=== PATIENT | male | born 1985 | race American Indian/Alaskan Native ===

== ENCOUNTER → 2024-11-29 | Outpatient (CLI) | payer MEDICAID, SELFPAY ==
--- NOTE | 2024-11-29 14:54 | XR_ITS ---
Examination: Renal arterial Doppler sonographic evaluation kidneys Examination time: November 29, 2024, 1602 hours INDICATIONS: Chronic kidney disease, nephrotic syndrome, frequent urination proteinuria months TECHNIQUE AND FINDINGS: Right kidney 9.6 cm No elevation of peak systolic velocities Normal resistive indices. Normal renal aorta ratio Left kidney 10.1 cm No elevation peak systolic velocities Normal resistive indices Normal renal artery ratio IMPRESSION: No Doppler sonographic findings of renal artery stenosis
--- NOTE | 2024-11-29 14:54 | XR_ITS ---
Examination: Retroperitoneal ultrasound, complete Technique: Multiple high resolution grayscale images of the retroperitoneum obtained, including kidneys and bladder. Exam date and time:November 29, 2024 6002 hours INDICATIONS: Chronic kidney disease with nephrotic syndrome, increased urination 2 weeks FINDINGS: Right kidney 9.6 cm renal cord is 1.6 cm Left kidney 10.1 cm renal cortex 1.7 cm Poor differentiation between renal cortex and medulla Moderate renal parenchymal scar formation No bladder mass or bladder calculi. Bladder prevoid volume 330 cc Prostate volume 26.4 cc no prostate nodules IMPRESSION: Poor differentiation between renal cortex and medulla Moderate bilateral renal parenchymal scar formation
== END | disposition home or self-care (01) ==
PROVIDERS: PCP Physician Assistant; Referring Provider Internal Medicine Nephrology; Visit Provider Internal Medicine Nephrology
DX: N28.89 Other specified disorders of kidney and ureter (principal)
CPT/HCPCS: 76770; 93975

== ENCOUNTER 2025-07-12 15:05 | Inpatient (IN) | payer MEDICAID, SELFPAY ==
[2025-07-12 15:06] VITALS: BMI 45.3
--- NOTE | 2025-07-12 15:44 | XR_ITS ---
EXAMINATION: PA chest single view TECHNIQUE: 1. Upright PA chest single view Date and time: July 12, 2025, 1554 hours INDICATIONS: Cough and shortness of breath beginning 2 days ago. FINDINGS: Mild heart failure Moderate enlargement cardiac contour, prominent vascular congestion with perihilar edema Intact osseous structures IMPRESSION: Moderate enlargement cardiac contour with mild heart failure
--- NOTE | 2025-07-12 15:44 | EKG_ITS ---
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
[2025-07-12 15:46] VITALS: BP 172/102; PULSE 88; RESP 19; TEMP 36.7; O2SAT 94; BMI 49.4
--- NOTE | 2025-07-12 15:46 | PD.EDADULT ---
ED General RME/HPI General Chief complaint: General Adult/Misc Complain Stated complaint: TOLD TO COME TO THE E.D. Time Seen by Provider: 07/12/25 15:21 Arrival date/time: 07/12/25 15:05 40-year-old male patient with significant history of hypertension, was sent to us to the emergency room by PCP after patient had routine lab works that was done yesterday. Patient does not know why. According to the patient has been having worsening bilateral lower extremity swelling involving the lower abdomen, shortness of breath dyspnea on exertion and orthopnea. Patient also complained of nonproductive cough. Denies any dizziness denies any chest pain denies any abdominal pain. No medication was taken prior to ER visit. Was seen by injection machine operator more than 6 months ago. Lost to follow-up. Related Data Previous Rx's ?Medication ?Instructions ?Recorded cephalexin 500 mg capsule 500 mg PO TID #14 caps 04/25/23 metoprolol tartrate 25 mg tablet 25 mg PO BID #30 tabs 04/25/23 Allergies Allergy/AdvReac Type Severity Reaction Status Date / Time No Known Allergies Allergy Verified 07/12/25 15:09 Review of Systems Review of Systems Narrative Review of Systems: Review of system reviewed and within normal limits except mentioned in HPI ED Exam Narrative Physical exam: VITAL SIGNS: Reviewed. GENERAL APPEARANCE: Alert and interactive, follows commands, no acute distress, HEAD AND FACE: Non-traumatic. ENT: PERRL, pink conjunctivitis, eyelid no trauma, Mucous membrane moist. NECK: Supple, nontender, no nuchal rigidity. Prominent jugular veins noted CHEST: No tenderness, no crepitus, no paradoxical movement, no retractions. LUNGS: Clear, well ventilated, symmetric, no rales, no wheezing, no ronchi, no stridor, good breath sounds bilaterally. HEART: Regular rate, regular rhythm, no murmur, no gallops. ABDOMEN: Soft, positive bowel sounds, nondistended, no guarding, nontender, no rebound, no masses, RECTAL: Deferred. GENITAL: Deferred. NEUROLOGICAL: Gross motor function intact sensory function intact, Appropriate for age. MUSCULOSKELETAL: low back nontender, full range of motion. EXTREMITIES: Bilateral lower extremity +2 edema, nontender, full range of motion. SKIN: Color pink, dry, no rash, no lacerations, no abrasions, no contusions. LYMPHATICS: Deferred. Course Quality Measures none Orders Category Date Time Status COVID-19 Screening Questionnaire NOW Care 07/12/25 17:33 Active Decision to Admit X1 Care 07/12/25 17:32 Active EKG (ED ONLY) *Do not use* NOW Care 07/12/25 15:45 Completed Consult to Nephrology Stat Cons 07/12/25 17:20 Ordered EKG (ED Only) Stat Exams 07/12/25 15:44 Draft US renal BI Stat Exams 07/12/25 17:11 Ordered XR chest 1V Stat Exams 07/12/25 15:44 Taken B-Type Natriuretic Peptide Stat Lab 07/12/25 16:07 Completed CBC Stat Lab 07/12/25 16:07 Completed Comprehensive Metabolic Panel Stat Lab 07/12/25 16:07 Completed Drug Screen,Urine Stat Lab 07/12/25 15:45 Ordered Partial Thromboplastin Time Stat Lab 07/12/25 16:07 Completed Prothrombin Time with INR Stat Lab 07/12/25 16:07 Completed Troponin I Stat Lab 07/12/25 16:07 Completed Urinalysis, C/S if Indicated Stat Lab 07/12/25 15:44 Ordered Furosemide Inj [Lasix Inj] Med 07/12/25 15:44 Discontinued 40 mg IVP X1 ONE Furosemide Inj [Lasix Inj] Med 07/12/25 17:20 Discontinued 80 mg IVP X1 ONE Vital Signs Vital signs: Vital Signs Temperature 98.1 F 07/12/25 15:46 Pulse Rate 88 07/12/25 15:46 Respiratory Rate 19 07/12/25 15:46 Blood Pressure 172/102 H 07/12/25 15:46 Pulse Oximetry (%) 94 L 07/12/25 15:46 Oxygen Delivery Method Room Air 07/12/25 15:46 Discharge Plan Plan Patient Disposition: Admit Acute Care w/in Hospital Discharge Disposition comment: Stable Prescriptions/Referrals Prescriptions/Med Rec: No Action cephalexin 500 mg capsule 500 mg PO TID Qty: 14 0RF metoprolol tartrate 25 mg tablet 25 mg PO BID Qty: 30 1RF Problem List Clinical Impression: ESRD (end stage renal disease), CHF (congestive heart failure) Patient/Caregiver Discharge Instructions Print Language: Amharic Stand Alone Forms: Arpita Award Info., Patient Portal Info Letter MDM Narrative MDM hospital course (for use when minimal MDM required): 07/12/25 15:05 40-year-old male patient with significant history of hypertension, was sent to us to the emergency room by PCP after patient had routine lab works that was done yesterday. Patient does not know why. According to the patient has been having worsening bilateral lower extremity swelling involving the lower abdomen, shortness of breath dyspnea on exertion and orthopnea. Patient also complained of nonproductive cough. Denies any dizziness denies any chest pain denies any abdominal pain. No medication was taken prior to ER visit. Was seen by injection machine operator more than 6 months ago. Lost to follow-up. EKG showed sinus rhythm, ventricular rate of 89 bpm, GA interval 163 MS, no ST segment elevation or depression noted. CBC showed hemoglobin of 10.3, hematocrit of 33.9 BUN of 56, creatinine 7.0. eGFR of 10 calcium 6.8, corrected calcium 6.8 troponin 0.146, BNP of 746. Patient received 80 mg of Lasix IV. Plan of care discussed with the patient, who agrees to be admitted. Spoke with Dr Nunez, injection machine operator on-call, told me to admit the patient, started patient on Lasix 80 mg IV twice daily. Spoke with hospitalist who admitted the patient. Medication Administration(s) Medication Administration History Discontinued Medications Furosemide (Furosemide Inj 10 Mg/Ml 4ml Vial) 40 mg IVP X1 ONE Stop: 07/12/25 15:45 Furosemide (Furosemide Inj 10 Mg/Ml 4ml Vial) 80 mg IVP X1 ONE Stop: 07/12/25 17:21 Consultations/Discussions re: Management Consult #1: Date/time: 07/12/25 5:46 pm Physician, specialty, service, details: Spoke with Dr Nunez injection machine operator, discussed the case, thank you Dr. Diagnosis Differential Diagnosis ED Complaint MDM: Congestive heart failure, lower leg edema, ESRD acute on chronic kidney inj Diagnoses ruled out and/or further discussions: Congestive heart failure, ESRD, acute on chronic kidney injury
[2025-07-12 16:31] LABS: Basophils # (Auto) 0.0 Thou/mm3 (0.0-0.2); Basophils % (Auto) 0 % (0-2.5); Eosinophils # (Auto) 0.1 Thou/mm3 (0.0-0.5); Eosinophils % (Auto) 1 % (0-10); Hematocrit 33.9 % (41.0-53.0); Hemoglobin 10.3 g/dL (13.5-16.0); Immature Granulocytes Auto 0.02 Thou/mm3 (0.00-0.00); Lymphocytes # (Auto) 0.6 Thou/mm3 (1.0-4.8); Lymphocytes % (Auto) 8 % (10-50); Mean Corpuscular HGB Conc 30.4 g/dl (31.0-37.0); Mean Corpuscular Hemoglobin 28.9 pg (25.0-35.0); Mean Corpuscular Volume 95 fL (80-100); Monocytes # (Auto) 0.5 Thou/mm3 (0.0-0.8); Monocytes % (Auto) 6 % (0-12); Neutrophils # (Auto) 6.7 Thou/mm3 (1.8-7.7); Neutrophils % (Auto) 85 % (37-80); Nucleated Red Blood Cell # 0.00 Thou/mm3 (0.00-0.00); Nucleated Red Blood Cell % 0 /100 WBC (0); Platelet Count 144 Thou/mm3 (140-440); RDW Standard Deviation 54.3 fL (35.1-43.9); Red Blood Count 3.57 Miln/mm3 (4.50-5.90); White Blood Count 7.9 Thou/mm3 (3.8-10.6)
[2025-07-12 16:43] LABS: INR 1.1 (0.9-1.3); Partial Thromboplastin Time 29.0 Seconds (22.0-36.0); Prothrombin Time 11.6 Seconds (9.0-12.2)
[2025-07-12 16:49] LABS: Alanine Aminotransferase 11 U/L (10-49); Albumin, Serum 4.2 gm/dL (3.5-5.0); Albumin/Globulin Ratio 1.8 (1.2-2.2); Alkaline Phosphatase 86 U/L (46-116); Anion Gap 13 (7-16); Aspartate Amino Transferase 12 U/L (0-34); B-Type Natriuretic Peptide 746 pg/mL (0-100); BUN/Creatinine Ratio 8 Ratio (12-20); Bilirubin,Total 0.5 mg/dL (0.3-1.2); Blood Urea Nitrogen 56 mg/dL (9-23); Carbon Dioxide 23.1 mMol/L (20.0-31.0); Chloride 109 mMol/L (98-107); Creatinine (Component) 7.0 mg/dL (0.6-1.3); Estimated Creatinine Clearance 21.9 mL/min (>60); Globulin 2.3 gm/dL (2.3-3.5); Glucose 132 mg/dL (74-106); Osmolality,Calculated 306 (275-295); Potassium 3.9 mMol/L (3.4-5.1); Sodium 145 mMol/L (136-145); Total Protein 6.5 gm/dL (5.7-8.2); eGFR 10 See Note
[2025-07-12 16:55] LABS: Calcium 6.8 mg/dL (8.3-10.6); Calcium (Corrected) 6.8 mg/dL (8.5-10.1)
[2025-07-12 16:56] LABS: Troponin I 0.146 ng/mL (0.0-0.045)
--- NOTE | 2025-07-12 17:11 | XR_ITS ---
Examination: Retroperitoneal ultrasound, complete Technique: Multiple high resolution grayscale images of the retroperitoneum obtained, including kidneys and bladder. Exam date and time: July 12, 2025, 1804 hours INDICATIONS: Abdominal distention beginning 1 month ago FINDINGS: No visualization kidneys given the patient's size Contracted urinary bladder Significant prostatomegaly 6.0 x 3.2 x 4.1 cm IMPRESSION: Severely limited study as above
[2025-07-12 17:46] VITALS: BP 186/115; PULSE 88; RESP 19; O2SAT 96
[2025-07-12 17:55] LABS: Collection Type, Urine Clean Catch
[2025-07-12 17:58] LABS: Bilirubin,Urine Negative (Negative); Blood,Urine Negative (Negative); Clarity,Urine Clear (Clear/Hazy); Color,Urine Colorless (Lt Yel-Yel); Culture Indicated,Urine Not Indicated; Glucose, Urine 3+ (Negative); Ketones,Urine Negative (Negative); Leukocyte Esterase,Urine Negative (Negative); Nitrite,Urine Negative (Negative); PH,Urine 6.0 (5.0-7.0); Protein,Urine 2+ (Neg - Trace); RBC,Urine 1 /hpf (0-3); Specific Gravity,Urine 1.009 (1.001-1.035); Squamous Epithelial Cell,Urine < 1 /hpf (0-5); Urobilinogen,Urine Negative mg/dL (0.0-1.0); WBC,Urine 3 /hpf (0-5)
[2025-07-12 18:06] VITALS: BP 186/177; PULSE 87
[2025-07-12] MEDS: FUROSEMIDE INJ 10 MG/ML 4ML VIAL 80 MG IVP (18:06)
[2025-07-12] MEDS: CALCIUM GLUC/NS 1000MG IVPB 1,000 MG/50 ML BAG 50 MG IV (18:07)
[2025-07-12 18:14] LABS: Amphetamine/Methamp Scrn,U Negative (Negative); Barbiturate Screen,Urine Negative (Negative); Benzodiazepines Screen,Urine Negative (Negative); Benzoylecgonine Screen, Ur Positive (Negative); Fentanyl Screen,Urine Negative (Negative); Opiate Screen,Urine Negative (Negative); THC Screen,Urine Negative (Negative)
--- NOTE | 2025-07-12 18:18 | ECHO_ITS ---
Patient Info Name: Alex Dasilva Age: 40 years : 1985 Gender: Male Ht: 180 cm Wt: 161 kg BSA: 2.92 m2 BP: 142 / 101 mmHg HR: 95 bpm Heart Rhythm: Sinus Rhythm Exam Date: 07/14/2025 8:54 AM Admit Date: 07/12/2025 Site: Patient Status: I Technical Quality: Fair Exam Type: CA echo doppler complete Electromechanic: Abbey Penn Ordering Physician: Corey Fair Study Info Indications Potential CHF - Primary Location: S2NX Left Ventricular Outflow Tract Name Value Normal LVOT 2D LVOT Diameter 2.2 cm LVOT Doppler LVOT Peak Velocity 142 cm/s LVOT Mean Gradient 4 mmHg LVOT VTI 27 cm LVOT VTI/AV VTI Ratio 0.8 LVOT Stroke Volume 104 ml Pulmonic Valve Name Value Normal PV Doppler PV Peak Velocity 130 cm/s Mitral Valve Name Value Normal MV Doppler MV Decel [place] 544 cm/s2 MV PHT 57 ms MV Area (PHT) 3.9 cm2 4.0-5.0 MV Diastolic Function MV E Peak Velocity 107 cm/s MV A Peak Velocity 50 cm/s MV E/A 2.1 MV Annular TDI MV Septal e' Velocity 6.1 cm/s MV E/e' (Septal) 17.6 MV Lateral e' Velocity 11.6 cm/s MV E/e' (Lateral) 9.2 MV e' Average 8.85 cm/s MV E/e' (Average) 13.4 Tricuspid Valve Name Value Normal TV Regurgitation Doppler TR Peak Velocity 270 cm/s Estimated PAP/RSVP RA Pressure 15 mmHg <=5 PA Systolic Pressure 44 mmHg <36 RV Systolic Pressure 44 mmHg <36 TV Annular TDI TV Lateral Laney s' Velocity 8.6 cm/s >=9.5 Aorta Name Value Normal Ascending Aorta Ao Root Diameter (MM) 2.8 cm Ao Root Diam Index (MM) 1.0 cm/m2 Aortic Valve Name Value Normal AV 2D/MM AV Cusp Sep (MM) 2.4 cm AV Doppler AV Peak Velocity 190 cm/s AV Mean Gradient 7 mmHg AV VTI 35 cm AV Area (Cont Eq VTI) 2.9 cm2 >=3.0 AV Area (Cont Eq Carlos) 2.8 cm2 AV DI (Carlos) 0.75 AV Regurgitation 2D LVOT Area 3.8 cm2 Ventricles Name Value Normal LV Dimensions 2D/MM IVS Diastolic Thickness (2D) 1.3 cm 0.6-1.0 LVID Diastole (2D) 6.7 cm 4.2-5.8 LVIW Diastolic Thickness (2D) 1.2 cm 0.6-1.0 LVID Systole (2D) 4.4 cm 2.5-4.0 LVOT Diameter 2.2 cm LV Mass (2D Cubed) 398.23 g 88.00-224.00 LV Mass Index (2D Cubed) 136 g/m2 49-115 Relative Wall Thickness (2D) 0.36 <=0.42 IVS/LVIW Diastolic Thickness (2D) 1.08 0.00-1.50 LV Fractional Shortening/Ejection Fraction 2D/MM LV Fractional Shortening (2D) 34 % 25-43 LV EF (2D Teichholz) 62 % LV Diastolic Volume (4C MOD) 235 ml LV EF (4C MOD) 39 % LV Diastolic Volume (2C MOD) 191 ml LV EF (2C MOD) 27 % LV Diastolic Volume (BP MOD) 217 ml 62-150 LV Diastolic Volume Index (BP MOD) 74 ml/m2 34-74 LV Systolic Volume (BP MOD) 142 ml 21-61 LV Systolic Volume Index (BP MOD) 49 ml/m2 11-31 LV EF (BP MOD) 35 % 52-72 LV Diastolic Length (4C) 8.5 cm LV Systolic Length (4C) 8.1 cm LV Stroke Volume (4C MOD) 92 ml RV Dimensions 2D/MM TV Lateral Laney s' Velocity 8.6 cm/s >=9.5 Atria Name Value Normal LA Dimensions LA Dimension (2D) 4.8 cm 3.0-4.0 LA Dimen Index (2D) 1.6 cm/m2 LA Dimension (MM) 5.3 cm 3.0-4.0 LA Volume (4C A-L) 103 ml LA Volume (BP A-L) 100 ml Left Ventricle Left ventricular chamber dimension is mildly enlarged. Left ventricular systolic function is moderately reduced with visually estimated ejection fraction of 35-40%. There is mild concentric hypertrophy noted in the left ventricle. There is indeterminate diastolic function in the left ventricle. Right Ventricle Right ventricular chamber dimension is normal. Right ventricular systolic function is normal. Left Atrium Left atrial chamber dimension is normal. Right Atrium Right atrial chamber dimension is normal. Aortic Valve The aortic valve is trileaflet. There is no aortic valve sclerosis. There is no aortic valve stenosis with a peak velocity of 190 cm/s, mean gradient of 7 mmHg, and aortic valve area of 2.9 cm2. There is no aortic valve regurgitation. Pulmonic Valve The pulmonic valve is normal. There is no pulmonic valve stenosis. There is no pulmonic regurgitation. Mitral Valve The mitral valve has normal leaflets. There is no mitral valve stenosis. There is mild mitral valve regurgitation. Tricuspid Valve The tricuspid valve leaflets are normal. There is no significant tricuspid valve stenosis. There is trace tricuspid valve regurgitation. Mild pulmonary hypertension, estimated pulmonary arterial systolic pressure is 44 mmHg and systemic blood pressure of 142 mmHg in systole. Pericardium/Pleural There is no pericardial effusion. No pleural effusion visualized. Aorta The aortic measurements are indexed to age and body surface area. The prox ascending aorta is not well visualized. Summary 1. Left ventricle size is mildly enlarged and systolic function is moderately reduced. Estimated ejection fraction is 35-40%. There is indeterminate diastolic function. There is mild concentric hypertrophy noted. 2. Right ventricle chamber size is normal and systolic function is normal. Estimated RVSP is 44 mmHg. 3. There is mild mitral valve regurgitation. 4. There is trace tricuspid valve regurgitation. 5. Dilated IVC with estimated RA pressure 15 mmHg. Report Signatures Finalized by Francheska Dunne on 07/14/2025 02:34 PM
--- NOTE | 2025-07-12 18:22 | PD.RESHP ---
Documentation for date of: 07/12/25 Senior resident attestation: Patient evaluated and examined at the bedside, plan of care discussed with rest of the team including my attending physician, except as noted. The patient is a 40-year-old male with past medical history of hypertension, gout, morbid obesity, hypothyroidism, patient works in [email or web address] for a few months a year, currently coming into the emergency room complaining of swelling on his lower extremities and abdominal as well as shortness of breath. Per patient his last blood work was 6 months ago in which he was told he has renal insufficiency, patient established care with Dr. Torres communications specialist, but does not remember his diagnosis, denied having a biopsy in the past, patient is also taking recently started Wegovy for obesity. #ROBERTO CARLOS versus CKD?reported chronic renal insufficiency over 6 months ago, now progressing to worsening CKD versus ROBERTO CARLOS. Patient requested on-call communications specialist to see him instead of calling his primary communications specialist, Dr Nunez was consulted, recommended IV diuresis with Lasix 80 mg twice daily. Strict intake and output ordered. Ayala's catheter ordered. Currently patient does not have any indication for hemodialysis if adequate diuresis achieved with Lasix. Appreciate nephrology recommendations #Hypocalcemia?give calcium gluconate x 1 #Acute hypoxic respiratory failure?noted saturating 88% on room air, started on 2 L nasal, oxygen, likely secondary to volume overload, will monitor for improvement with diuresis. #Rule out CHF?noted elevated BNP, will order echocardiogram and consult cardiology for new diagnosis of CHF. #NSTEMI, likely type II, in the setting of CKD versus AHRF, repeat troponins ordered, cardiology was consulted, patient denied any active chest pain, if continued uptrending troponin consider heparin GTT and antiplatelet medications. EKG does not show any acute ST elevation. Will give loading dose of aspirin. #Anemia?anemia of chronic disease likely in the setting of chronic renal sufficiency, ordered iron panel, stool occult. Quresh PGY3 HPI History of Present Illness Chief complaint: Anasarca History of present illness: History of present illness: Patient is a 40 yo M with PMH of CKD, hypothyroidism, HTN, gout, morbid obesity presenting to ED with bilateral lower extremity swelling. Patient has had this swelling for about a month, gotten worse over the last 2 weeks. Patient has also had significant dyspnea, requiring 2 stops while trying to get to ED from parking lot. Abdomen has been much tenser than usual. Patient saw communications specialist 6 months prior, but has not had follow-up. ED course: EKG- sinus rhythm, ventricular rate of 89 bpm, OH interval 163 MS, no ST segment elevation or depression. CBC- hemoglobin of 10.3, creatinine 7.0, corrected calcium 6.8, troponin 0.146, BNP 746. Patient received 80 mg of Lasix IV. Spoke with Dr. Nunez, who recommended admission. PMH: ESRD, hypothyroidism, HTN, gout PSH: None Allergies: None Social history: Previous smoking, previous AUD (5-6 beers/day), previous cocaine use Review of Systems Review of Systems Narrative Review of Systems: General: Denies fevers or chills HEENT: Denies congestion or sore throat Heart: Denies chest pain or palpitations Lungs: Endorses shortness of breath Abdomen: Endorses distention Genitourinary: Denies frequency, urgency, dysuria, hematuria Musculoskeletal: Denies joint pain, denies muscular pain; endorses bilateral lower leg swelling Neurology: Denies numbness, tingling ROS otherwise negative except what is mentioned above. Exam Vital Signs Temp Pulse Resp BP Pulse Ox O2 Del Method O2 Flow Rate 98.1 F 87 19 186/177 H 96 Nasal Cannula 2 07/12/25 15:46 07/12/25 18:06 07/12/25 17:46 07/12/25 18:06 07/12/25 17:46 07/12/25 17:46 07/12/25 17:46 Narrative Exam General: A/O x3, no acute distress, well-nourished, well-developed, morbidly obese Eyes: PERRL, EOMI. Anicteric, vision grossly intact. Ears: No ear pain, no ear discharge, Hearing grossly intact. Nose: No nasal discharge. Mouth/Throat: Moist mucous membranes, no redness, no lesions. Neck: Neck supple, non-tender, no cervical lymphadenopathy. Lungs: Clear ELINOR to auscultation and percussion, No accessory muscle use. Cardio: Normal S1/S2, regular rhythm, no murmurs, no JVD or carotid bruits. Abdomen: Soft, non-tender, no palpable masses, peristalsis present, no guarding or rebound; appears distended and tense with striae Extremities: Symmetrical, no significant deformities, 4+ bilateral to above knee peripheral edema , non-tender, peripheral pulses present. Skin: No rashes, no lesions, warm to touch. Neuro: No focal neurological deficits. Psych: Cooperative, appropriate mood and effect. Results: Labs 07/13/25 04:32 07/13/25 04:32 Labs: Short CBC 07/12/25 Range/Units 16:07 WBC 7.9 (3.8-10.6) Thou/mm3 Hgb 10.3 L (13.5-16.0) g/dL Hct 33.9 L (41.0-53.0) % Plt Count 144 (140-440) Thou/mm3 BMP 07/12/25 16:07 Sodium 145 Potassium 3.9 Chloride 109 H Carbon Dioxide 23.1 BUN 56 H Creatinine 7.0 H* Glucose 132 H Calcium 6.8 L* Cardiac Enzymes 07/12/25 Range/Units 16:07 Troponin I 0.146 H* (0.0-0.045) ng/mL Liver Function 07/12/25 Range/Units 16:07 Total Bilirubin 0.5 (0.3-1.2) mg/dL AST 12 (0-34) U/L ALT 11 (10-49) U/L Alkaline Phosphatase 86 (46-116) U/L Albumin 4.2 (3.5-5.0) gm/dL Urine 07/12/25 Range/Units 17:39 Urine Color Colorless A (Lt Yel-Yel) Urine Clarity Clear (Clear/Hazy) Urine pH 6.0 (5.0-7.0) Ur Specific [place] 1.009 (1.001-1.035) Urine Protein 2+ A (Neg - Trace) Urine Glucose (UA) 3+ A (Negative) Quality Measures Quality Measures none Medications Home Medications and Allergies Home Medications ?Medication ?Instructions ?Recorded ?Confirmed ?Type allopurinol 300 mg tablet 300 mg PO .am 07/13/25 07/13/25 History amlodipine 10 mg tablet 10 mg PO DAILY 07/13/25 07/13/25 History calcitriol 0.25 mcg capsule 0.25 mcg PO HS 07/13/25 07/13/25 History clonidine 0.2 mg/24 hr weekly 0.2 mg topical .week 07/13/25 07/13/25 History transdermal patch dapagliflozin propanediol 10 mg 10 mg PO DAILY 07/13/25 07/13/25 History tablet (Farxiga) ergocalciferol (vitamin D2) 1,250 1,250 mcg PO .week 07/13/25 07/13/25 History mcg (50,000 unit) capsule furosemide 40 mg tablet 40 mg PO DAILY 07/13/25 07/13/25 History hydralazine 50 mg tablet 50 mg PO TID 07/13/25 07/13/25 History hydrochlorothiazide 12.5 mg tablet 12.5 mg PO .am 07/13/25 07/13/25 History levothyroxine 50 mcg tablet 50 mcg PO .AM 07/13/25 07/13/25 History lisinopril 5 mg tablet 5 mg PO DAILY 07/13/25 07/13/25 History terazosin 5 mg capsule 5 mg PO HS 07/13/25 07/13/25 History Allergies Allergy/AdvReac Type Severity Reaction Status Date / Time No Known Allergies Allergy Verified 07/12/25 15:09 Visit Medications Acetaminophen (Acetaminophen 325 Mg Tablet) 650 mg PO Q6H PRN PRN Reason: Fever >101.5 Stop: 08/11/25 18:12 Acetaminophen (Acetaminophen 325 Mg Tablet) 650 mg PO Q6H PRN PRN Reason: PAIN SCALE 1-3 (mild Stop: 08/11/25 18:12 Hydrocodone Bitart/Acetaminophen (Hydrocodone/Apap 5/325 Tablet) 1 tab PO Q4HR PRN PRN Reason: PAIN SCALE 4-6 (Moderate Stop: 07/17/25 18:12 Calcium Gluconate/Sodium Chloride (Calcium Gluc/Ns 1000mg Ivpb) 1,000 mg in 50 mls @ 50 mls/hr IV X1 ONE Stop: 07/12/25 18:59 Last Admin: 07/12/25 18:07 Dose: 50 mls/hr Pantoprazole Sodium (Pantoprazole 40 Mg Tablet) 40 mg PO QDAY HOLLIS Stop: 08/11/25 18:29 Discontinued Medications Calcium Gluconate (Calcium Gluconate 10% Inj 1 Gm/10 Ml Vial) 1 gm IV X1 ONE Stop: 07/12/25 17:43 Last Admin: 07/12/25 17:52 Dose: Not Given Furosemide (Furosemide Inj 10 Mg/Ml 4ml Vial) 40 mg IVP X1 ONE Stop: 07/12/25 15:45 Last Admin: 07/12/25 17:52 Dose: Not Given Furosemide (Furosemide Inj 10 Mg/Ml 4ml Vial) 80 mg IVP X1 ONE Stop: 07/12/25 17:21 Last Admin: 07/12/25 18:06 Dose: 80 mg Assessment & Plan Plan Patient is a 40 yo M with PMH of ESRD, hypothyroidism, HTN, gout, morbid obesity presenting to ED with fluid overload and shortness of breath; patient admitted on 07/12/25 for anasarca. #Anasarca secondary to #ESRD and #CHF Patient has 4+ edema bilaterally to above knee and significant abdominal distention. Admission creatinine 7.0, corrected calcium 6.8, troponin 0.146, BNP 746. CXR showed mild heart failure. Renal u/s- no visualization due to patient size Plan: Consulted cardiology, appreciate recs Echo ordered Consulted nephrology, appreciate recs Furosemide 80 BID Strict I&O, Daily weight, 1800ml restriction #HTN BP on admission- 172/102; up to 192/108 Plan: Hydralazine 50 TID Coreg 6.25 BID Labetalol 10 q4h for SBP > 180 Diuresis as above Monitor BP #Hypothyroidism On levothyroxine 50 at home Plan: Restarted home meds #Gout On allopurinol at home Plan: Hold for now Disposition: Tele DVT prophylaxis: SCD GI prophylaxis: Diet: Renal Lines: PIV CODE STATUS: Full This case was discussed with my attending physician, Dr. Bacon, and senior resident, Dr. Espinoza. Corey Fair MD-PhD, PGY1 Attending Provider Attestation/Addendum Erma [place], DO, attest that I was physically present for the borrero portions of the service and evaluated the patient with the resident and I reviewed and discussed the case with the resident and agree with the resident's findings and plans of care as documented above Patient is a 40-year-old male with past medical history of hypertension, gout, CKD, hypothyroidism who presented to the ED with worsening swelling in his bilateral lower extremities and shortness of breath. Patient states that his symptoms have been gradually worsening for the past few months. 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 He was initially 300 pounds and has now gained about 50+ pounds. Patient states he had previously seen a communications specialist about 6 months ago. Patient has not had labs done since 2022 here in the hospital during which her creatinine was 3.2. Patient now presents with a creatinine of 7.0. He is also noted to have hypocalcemia and received calcium gluconate in the ED. Troponin was detectable at 0.146 and BNP is 746. EKG does not show any ST or T wave changes. He reports worsening dyspnea on exertion, but denies any chest pain. On presentation to the ED, chest x-ray showed moderate enlargement of cardiac contour with mild heart failure. Renal ultrasound had been done showing significant prostatomegaly, but limited visualization of the kidneys. In November, renal ultrasound showed poor differentiation between renal cortex and medulla with moderate renal parenchymal scar formation. Patient denies any family history of renal issues. Patient currently requiring 2 L nasal cannula. Blood pressure noted to be significantly elevated at 186/177. Nephrology was called from ED and recommends diuresis. Will place Ayala catheter and monitor ins and outs.On exam, patient is obese with 3+ pitting edema bilateral lower extremities which extends to his lower abdomen. Lungs are clear to auscultation bilaterally. Will also consult cardiology due to concern for acute CHF exacerbation. This decision was made to admit patient to telemetry for further workup and medical management of anasarca secondary to acute kidney injury versus CKD versus acute CHF exacerbation. Will continue to trend troponins.
[2025-07-12] MEDS: LEVOTHYROXINE SODIUM 25 MCG TABLET 50 MCG PO (18:57)
[2025-07-12 20:11] VITALS: BP 192/108; PULSE 90
[2025-07-12] MEDS: LABETALOL INJ 5 MG/ML VIAL 20 ML 10 MG IVP (20:11)
[2025-07-12 21:06] VITALS: BP 160/93; BP 171/113; PULSE 76; PULSE 77; RESP 16; TEMP 36.8; O2SAT 97
[2025-07-12] MEDS: FUROSEMIDE INJ 10 MG/ML 4ML VIAL 80 MG IV (21:06)
[2025-07-12] MEDS: FAMOTIDINE INJ 10 MG/ML VIAL 2 ML 20 MG IVP (21:06)
[2025-07-12 21:30] LABS: Albumin, Serum 3.8 gm/dL (3.5-5.0); Anion Gap 12 (7-16); BUN/Creatinine Ratio 8 Ratio (12-20); Blood Urea Nitrogen 53 mg/dL (9-23); Carbon Dioxide 21.4 mMol/L (20.0-31.0); Chloride 109 mMol/L (98-107); Creatinine (Component) 6.8 mg/dL (0.6-1.3); Estimated Creatinine Clearance 22.6 mL/min (>60); Glucose 134 mg/dL (74-106); Osmolality,Calculated 299 (275-295); Phosphorous 6.8 mg/dL (2.4-5.1); Potassium 3.8 mMol/L (3.4-5.1); Sodium 142 mMol/L (136-145); eGFR 10 See Note
[2025-07-12 21:33] LABS: Calcium 6.3 mg/dL (8.3-10.6); Calcium (Corrected) 6.5 mg/dL (8.5-10.1); Troponin I 0.152 ng/mL (0.0-0.045)
[2025-07-12 23:23] LABS: Creatinine,Random Urine 53 mg/dL (30-125); Protein Total, Random Urine 136 mg/dL (1-14)
[2025-07-12 23:57] VITALS: BP 171/117; PULSE 81
[2025-07-13] VITALS (14 sets, daily range): BP systolic 120–171; BP diastolic 83–117; PULSE 68–93; RESP 17–24; TEMP 36.3–36.9; O2SAT 93–98; BMI 49.6
[2025-07-13 01:34] LABS: Troponin I 0.141 ng/mL (0.0-0.045)
[2025-07-13] MEDS: FUROSEMIDE INJ 10 MG/ML 4ML VIAL 80 MG IV (05:38)
[2025-07-13] MEDS: LEVOTHYROXINE SODIUM 25 MCG TABLET 50 MCG PO (05:39)
[2025-07-13 05:40] LABS: Basophils # (Auto) 0.0 Thou/mm3 (0.0-0.2); Basophils % (Auto) 0 % (0-2.5); Eosinophils # (Auto) 0.2 Thou/mm3 (0.0-0.5); Eosinophils % (Auto) 3 % (0-10); Hematocrit 31.6 % (41.0-53.0); Hemoglobin 9.5 g/dL (13.5-16.0); Immature Granulocytes Auto 0.01 Thou/mm3 (0.00-0.00); Lymphocytes # (Auto) 0.8 Thou/mm3 (1.0-4.8); Lymphocytes % (Auto) 10 % (10-50); Mean Corpuscular HGB Conc 30.1 g/dl (31.0-37.0); Mean Corpuscular Hemoglobin 28.7 pg (25.0-35.0); Mean Corpuscular Volume 96 fL (80-100); Monocytes # (Auto) 0.7 Thou/mm3 (0.0-0.8); Monocytes % (Auto) 9 % (0-12); Neutrophils # (Auto) 6.1 Thou/mm3 (1.8-7.7); Neutrophils % (Auto) 77 % (37-80); Nucleated Red Blood Cell # 0.00 Thou/mm3 (0.00-0.00); Nucleated Red Blood Cell % 0 /100 WBC (0); Platelet Count 129 Thou/mm3 (140-440); RDW Standard Deviation 54.2 fL (35.1-43.9); Red Blood Count 3.31 Miln/mm3 (4.50-5.90); White Blood Count 7.9 Thou/mm3 (3.8-10.6)
[2025-07-13 05:46] LABS: Ferritin 82 ng/mL (10.5-307.3); Iron 23 mcg/dL (65-175); Percent Iron Saturation 8 % (20-55); Total Iron Binding Capacity 284 mcg/dL (250-425); Unsaturated Iron Binding 261 (225-295)
[2025-07-13 05:51] LABS: Alanine Aminotransferase 10 U/L (10-49); Albumin, Serum 4.0 gm/dL (3.5-5.0); Albumin/Globulin Ratio 1.8 (1.2-2.2); Alkaline Phosphatase 83 U/L (46-116); Anion Gap 12 (7-16); Aspartate Amino Transferase 13 U/L (0-34); BUN/Creatinine Ratio 8 Ratio (12-20); Bilirubin,Total 0.4 mg/dL (0.3-1.2); Blood Urea Nitrogen 54 mg/dL (9-23); Carbon Dioxide 24.0 mMol/L (20.0-31.0); Cardiac Risk Estimate 2.7 RATIO (4.0-6.7); Chloride 108 mMol/L (98-107); Cholesterol 108 mg/dL (132-200); Creatinine (Component) 6.8 mg/dL (0.6-1.3); Estimated Creatinine Clearance 22.6 mL/min (>60); Globulin 2.2 gm/dL (2.3-3.5); Glucose 114 mg/dL (74-106); HDL Cholesterol 40 mg/dL (40-60); LDL Cholesterol,Calculated 62 mg/dL (0-130); Magnesium 2.1 mg/dL (1.6-2.6); Osmolality,Calculated 302 (275-295); Phosphorous 7.1 mg/dL (2.4-5.1); Potassium 4.2 mMol/L (3.4-5.1); Sodium 144 mMol/L (136-145); Total Protein 6.2 gm/dL (5.7-8.2); Triglycerides 28 mg/dL (30-150); eGFR 10 See Note
[2025-07-13 05:54] LABS: Calcium 6.7 mg/dL (8.3-10.6)
[2025-07-13 05:55] LABS: Calcium (Corrected) 6.7 mg/dL (8.5-10.1); Troponin I 0.137 ng/mL (0.0-0.045)
--- NOTE | 2025-07-13 10:28 | ESPR_ITS ---
Documentation for date of: 07/13/25 Subjective Subjective Interval history: Patient seen and examined at bedside. Stopping Lasix and switching to Bumex 2 mg every 8 hours. Started metolazone twice daily. Replenishing calcium. Will recheck electrolytes in the evening and repeat EKG. Coreg increased to 12.5. Exam Vital Signs Temp Pulse Resp BP Pulse Ox O2 Del Method O2 Flow Rate 97.6 F 93 21 H 167/104 H 98 Oxy Mask 7 07/13/25 08:00 07/13/25 08:14 07/13/25 08:00 07/13/25 08:14 07/13/25 08:00 07/13/25 08:00 07/13/25 08:00 Narrative Exam General: Obese man, diffuse anasarca. Awake and in no acute distress. Conversational and non-toxic appearing. Neurologic: GCS 15. Alert and oriented x3, no gross neurological deficit, and patient able to move all 4 extremities. HEENT: Normocephalic, atraumatic, mucous membranes moist. Pupils reactive to light. Heart: Regular rate and rhythm, normal S1 and S2, no murmurs. Lungs: Clear to auscultation bilaterally with no wheezing or crackles. Abdomen: Obese, pitting edema diffusely in the bilateral lower quadrants. No guarding or rebound tenderness. Extremities: Bilateral lower extremity pitting edema up to the hips. 2+ radial and dorsalis pedis pulses bilaterally. Skin: Warm. Dry. No rash or ecchymoses. Objective Labs 07/13/25 04:32 07/13/25 04:32 Labs: Laboratory Results - last 24 hr 07/12/25 07/12/25 07/12/25 16:07 17:39 18:38 WBC 7.9 RBC 3.57 L Hgb 10.3 L Hct 33.9 L MCV 95 MCH 28.9 MCHC 30.4 L RDW Std Deviation 54.3 H Plt Count 144 Neut % (Auto) 85 H Lymph % (Auto) 8 L [place] % (Auto) 6 Eos % (Auto) 1 Baso % (Auto) 0 Neut # (Auto) 6.7 Lymph # (Auto) 0.6 L [place] # (Auto) 0.5 Eos # (Auto) 0.1 Baso # (Auto) 0.0 Immature Gran # (Auto) 0.02 H Absolute Nucleated RBC 0.00 Immature Gran % 0 Nucleated RBC % 0 PT 11.6 INR 1.1 APTT 29.0 Sodium 145 Potassium 3.9 Chloride 109 H Carbon Dioxide 23.1 Anion Gap 13 BUN 56 H Creatinine 7.0 H* Estim Creat Clear Calc 21.9 L eGFR 10 L* BUN/Creatinine Ratio 8 L Glucose 132 H Calculated Osmolality 306 H Calcium 6.8 L* Corrected Calcium 6.8 L* Phosphorus Magnesium Iron TIBC Iron Saturation Unsat Iron Binding Ferritin Total Bilirubin 0.5 AST 12 ALT 11 Alkaline Phosphatase 86 Troponin I 0.146 H* Cancelled B-Natriuretic Peptide 746 H* Total Protein 6.5 Albumin 4.2 Globulin 2.3 Albumin/Globulin Ratio 1.8 Triglycerides Cholesterol LDL Cholesterol, Calc HDL Cholesterol Cholesterol/HDL Ratio Ur Collection Type Clean Catch Urine Color Colorless A Urine Clarity Clear Urine pH 6.0 Ur Specific [place] 1.009 Urine Protein 2+ A Urine Glucose (UA) 3+ A Urine Ketones Negative Urine Blood Negative Urine Nitrite Negative Urine Bilirubin Negative Urine Urobilinogen (Auto) Negative Ur Leukocyte Esterase Negative Urine RBC 1 Urine WBC 3 Ur Squamous Epith Cells < 1 Urine Bacteria None Ur Culture Indicated? Not Indicated Ur Random Creatinine 53 U Random Total Protein 136 H Urine Opiates Screen Negative Urine Fentanyl Screen Negative Ur Barbiturates Screen Negative U Amphetamin/Meth Scrn Negative U Benzodiazepines Scrn Negative U Cocaine Metab Screen Positive A U Marijuana (THC) Screen Negative 07/12/25 07/13/25 07/13/25 20:40 00:39 04:32 WBC 7.9 RBC 3.31 L Hgb 9.5 L Hct 31.6 L MCV 96 MCH 28.7 MCHC 30.1 L RDW Std Deviation 54.2 H Plt Count 129 L Neut % (Auto) 77 Lymph % (Auto) 10 [place] % (Auto) 9 Eos % (Auto) 3 Baso % (Auto) 0 Neut # (Auto) 6.1 Lymph # (Auto) 0.8 L [place] # (Auto) 0.7 Eos # (Auto) 0.2 Baso # (Auto) 0.0 Immature Gran # (Auto) 0.01 H Absolute Nucleated RBC 0.00 Immature Gran % 0 Nucleated RBC % 0 PT INR APTT Sodium 142 144 Potassium 3.8 4.2 Chloride 109 H 108 H Carbon Dioxide 21.4 24.0 Anion Gap 12 12 BUN 53 H 54 H Creatinine 6.8 H* 6.8 H* Estim Creat Clear Calc 22.6 L 22.6 L eGFR 10 L* 10 L* BUN/Creatinine Ratio 8 L 8 L Glucose 134 H 114 H Calculated Osmolality 299 H 302 H Calcium 6.3 L* 6.7 L* Corrected Calcium 6.5 L* 6.7 L* Phosphorus 6.8 H 7.1 H Magnesium 2.1 Iron 23 L TIBC 284 Iron Saturation 8 L Unsat Iron Binding 261 Ferritin 82 Total Bilirubin 0.4 AST 13 ALT 10 Alkaline Phosphatase 83 Troponin I 0.152 H* 0.141 H* 0.137 H* B-Natriuretic Peptide Total Protein 6.2 Albumin 3.8 4.0 Globulin 2.2 L Albumin/Globulin Ratio 1.8 Triglycerides 28 L Cholesterol 108 L LDL Cholesterol, Calc 62 HDL Cholesterol 40 Cholesterol/HDL Ratio 2.7 L Ur Collection Type Urine Color Urine Clarity Urine pH Ur Specific [place] Urine Protein Urine Glucose (UA) Urine Ketones Urine Blood Urine Nitrite Urine Bilirubin Urine Urobilinogen (Auto) Ur Leukocyte Esterase Urine RBC Urine WBC Ur Squamous Epith Cells Urine Bacteria Ur Culture Indicated? Ur Random Creatinine U Random Total Protein Urine Opiates Screen Urine Fentanyl Screen Ur Barbiturates Screen U Amphetamin/Meth Scrn U Benzodiazepines Scrn U Cocaine Metab Screen U Marijuana (THC) Screen Quality Measures Quality Measures none Assessment & Plan Assessment Current Active Medications: Generic Name Dose Route Start Last Admin Trade Name Freq PRN Reason Stop Dose Admin Acetaminophen 650 mg 07/12/25 18:13 Acetaminophen 325 Mg Tablet PO 08/11/25 18:12 Q6H PRN Fever >101.5 Acetaminophen 650 mg 07/12/25 18:13 Acetaminophen 325 Mg Tablet PO 08/11/25 18:12 Q6H PRN PAIN SCALE 1-3 (mild Hydrocodone Bitart/Acetaminophen 1 tab 07/12/25 18:13 Hydrocodone/Apap 5/325 Tablet PO 07/17/25 18:12 Q4HR PRN PAIN SCALE 4-6 (Moderate Carvedilol 6.25 mg 07/13/25 08:00 07/13/25 08:14 Carvedilol 3.125 Mg Tablet PO 08/12/25 07:59 6.25 mg BIDWM HOLLIS Administration Furosemide 80 mg 07/12/25 20:30 07/13/25 05:38 Furosemide Inj 10 Mg/Ml 4ml Vial IV 08/11/25 20:29 80 mg TID HOLLIS Administration Hydralazine HCl 50 mg 07/12/25 22:00 07/13/25 05:38 Hydralazine Hcl 25 Mg Tablet PO 08/11/25 21:59 50 mg TID HOLLIS Administration Labetalol HCl 10 mg 07/12/25 19:44 07/12/25 20:11 Labetalol Inj 5 Mg/Ml Vial 20 Ml IVP 08/11/25 19:43 10 mg Q4H PRN Administration SBP > 180 Levothyroxine Sodium 50 mcg 07/13/25 06:00 07/13/25 05:39 Levothyroxine Sodium 25 Mcg Tablet PO 08/12/25 05:59 50 mcg ACBR HOLLIS Administration Pantoprazole Sodium 40 mg 07/13/25 09:00 07/13/25 08:13 Pantoprazole Inj 40 Mg Vial IVP 08/12/25 08:59 40 mg QDAY HOLLIS Administration Plan Patient is a 40 yo M with PMH of ESRD, hypothyroidism, HTN, gout, morbid obesity presenting to ED with fluid overload and shortness of breath; patient admitted on 07/12/25 for anasarca. #Anasarca secondary to #Possible CKD progressing to ESRD and #Possible CHF Patient has 4+ edema bilaterally to above knee and significant abdominal distention. Admission creatinine 7.0, corrected calcium 6.8, troponin 0.146, BNP 746. CXR showed mild heart failure. Renal u/s- no visualization due to body habitus Patient has been diuresing, mentions that he had produced 3 urinals with urine overnight Plan: Stopped Lasix Bumex 2 mg Q8 Metolazone 10 mg twice daily Will repeat EKG Consulted cardiology Echo ordered Consulted nephrology Strict I&O, Daily weight, 1800ml restriction #HTN BP on admission- 172/102; up to 192/108, most recently 120/83 Plan: Continue Hydralazine 50 TID Coreg 12.5 BID Labetalol 10 q4h for SBP > 180 Diuresis as above Monitor BP #Hypocalcemia Calcium remains low in the 6's despite 2 g resuscitation Plan: 2 g calcium Will repeat electrolytes in the evening #Hypothyroidism On levothyroxine 50 at home Plan: Restarted home meds #History of Gout On allopurinol at home Plan: Hold for now Disposition: Changed Lasix to Bumex and metolazone, continuing to diurese, increased Coreg dose, BP well-controlled. DVT prophylaxis: SCD Diet: Renal Lines: PIV CODE STATUS: Full Patient was seen and discussed with my attending physician Dr. Rito MONTES. Daniele Hoffman DO PGY-1. Attending Provider Attestation/Addendum I Zeke Veras MD reviewed the note and agree with the resident's assessment & plan with modifications/additions/exceptions as below. I have personally reviewed labs, imaging, home meds/prior records, examined the patient, formulated and discussed management plan with the IM team. A 40-year-old male with morbid obesity ESRD and heart failure admitted with NSTEMI, hypocalcemia, QT prolongation and acute decompensation of congestive heart failure. Replace calcium gluconate IV, obtain TTE, change Lasix to Bumex 2 mg every 8, will add metolazone x 1, repeat EKG and serum electrolytes in 12 hours, hold allopurinol, increase Coreg to 12.5 mg twice daily, will add clonidine if still remains hypertensive. Will gradually add GDMT as tolerated
[2025-07-13] MEDS: HYDROcodone/APAP 5/325 TABLET 1 TAB PO (10:31)
[2025-07-13] MEDS: CALCIUM GLUC/NS 1000MG IVPB 1,000 MG/50 ML BAG 50 MG IV ×2 (11:35→14:14)
[2025-07-13] MEDS: BUMETANIDE INJ 0.25 MG/ML VIAL 4 ML 2 MG IVP (11:38)
--- NOTE | 2025-07-13 13:34 | PC.SS ---
Alex Dasilva is a 40 year-old male admitted to [facility] for Anasarca. SS conducted bedside contact with the patient to complete initial assessment and to discuss discharge planning. Role and reason explained. Patient confirmed demographic information. Patient identifies his mother Jenna Dasilva [phone] as his surrogate decision maker. Pt states he is able to complete all ADL?s independent. Pt does not possesses any DME. Pts PCP is Guerda Mccoy. Pharmacy of choice is [facility]. Discharge options discussed and the pt wishes to return home.? Pt will provide transport. No further intervention required at this time, social problems specialist would be available to address any further concerns. DC Plan: Home Contact: momJenna Address: Confirmed on face sheet PCP: Nadine
[2025-07-13] MEDS: BUMETANIDE INJ 20 MG in CONTAINER,EMPTY 50 ML 1 BAG 4 MG IV (15:57)
[2025-07-13] MEDS: CALCIUM ACETATE 667 MG TABLET 1334 MG PO ×2 (18:42→22:32)
[2025-07-13 20:09] LABS: Alanine Aminotransferase 9 U/L (10-49); Albumin, Serum 4.1 gm/dL (3.5-5.0); Albumin/Globulin Ratio 1.9 (1.2-2.2); Alkaline Phosphatase 85 U/L (46-116); Anion Gap 13 (7-16); Aspartate Amino Transferase < 10 U/L (0-34); BUN/Creatinine Ratio 7 Ratio (12-20); Bilirubin,Total 0.4 mg/dL (0.3-1.2); Blood Urea Nitrogen 50 mg/dL (9-23); Carbon Dioxide 23.1 mMol/L (20.0-31.0); Chloride 107 mMol/L (98-107); Creatinine (Component) 7.0 mg/dL (0.6-1.3); Estimated Creatinine Clearance 22.0 mL/min (>60); Globulin 2.2 gm/dL (2.3-3.5); Glucose 128 mg/dL (74-106); Osmolality,Calculated 300 (275-295); Potassium 4.0 mMol/L (3.4-5.1); Sodium 143 mMol/L (136-145); Total Protein 6.3 gm/dL (5.7-8.2); eGFR 10 See Note
[2025-07-13 20:19] LABS: Calcium 6.7 mg/dL (8.3-10.6); Calcium (Corrected) 6.7 mg/dL (8.5-10.1)
--- NOTE | 2025-07-13 23:01 | ESCONSULT_ITS ---
RE: JOSLYN SALAZAR : 1985 DATE OF CONSULTATION: 07/13/2025 REASON FOR REFERRAL: Acute kidney injury on chronic disease. REFERRING PHYSICIAN: Corey Fair MD. HISTORY OF PRESENT ILLNESS: This patient is a 40-year-old -[place] gentleman with past medical history significant for hypertension, morbid obesity, and stage IV CKD at least since 04/2023, who presented to the emergency room last night after he was told by his primary care physician to go to emergency room due to increasing shortness of breath and leg swelling. The patient has been short of breath for at least 2 weeks prior to seeing his primary care physician. When he presented to the emergency room, he was found with abdominal wall swelling and also 4+ bilateral lower extremity edema. He told me that he was seen by a burr filer in the past and was told that he had kidney disease. Prior to this admission, patient had a blood test done in 04/2023 and during that time, creatinine was found to be elevated at 3.2 with eGFR of 25. He also had a bilateral kidney ultrasound done last 11/2024 and it revealed a right kidney measuring 9.6 cm with a cortex of 1.6 cm, left kidney measured 10.1 cm with renal cortex of 1.7 cm with moderate bilateral renal parenchymal scar formation consistent with advanced CKD. He also told me that he has been having problems with shortness of breath and saw a methods time analyst in [place] more than a year ago and told him that he had normal heart function. He was supposed to do a stress test, but was not able to do it. When he arrived at the emergency room, he was found with a sodium of 144, potassium of 4.2, BUN of 56, creatinine of 7, eGFR of 10, calcium of 6.8, BNP of 746, and a slightly elevated troponin level of 0.146. The patient was admitted and was started on IV Lasix 40 mg b.i.d. The patient has good amount of urine output, however, continues to be swollen and thus furosemide was increased to 80 mg b.i.d. The patient also was hypoxic when he was admitted. He was wearing an OxyMask with O2 saturation of 98%. The patient seems to be comfortable at the moment and does not have any difficulty breathing with his OxyMask. PAST MEDICAL HISTORY: As previously mentioned, hypertension, obesity, stage IV CKD, gout, and hypothyroidism. SOCIAL HISTORY: The patient used to smoke, also drinks alcohol about 5-6 beers per day and currently has a positive urine test for cocaine. CURRENT MEDICATIONS: 1. Bumex 2 mg b.i.d. 2. Acetaminophen. 3. Aspirin 325 mg daily. 4. Calcium 1 g IV x1. 5. Calcium gluconate IV 1 g x1. 6. Carvedilol 12.5 mg b.i.d. 7. Hydralazine 50 mg p.o. t.i.d. 8. Metolazone 5 mg x1, 10 mg b.i.d. 9. Levothyroxine 50 mcg p.o. daily. ALLERGIES: NO KNOWN DRUG ALLERGIES. PHYSICAL EXAMINATION: Awake and alert. Blood pressure of 150/90 and heart rate of 77. Did not do a full physical exam as this is a telehealth visit. LABORATORY DATA: Sodium of 143, potassium 4, chloride 107, CO2 of 24, BUN of 54, creatinine 6.8, calcium 6.7, phosphorus 7.1, and albumin of 4. Hemoglobin of 10.3, WBC of 7900, and platelet count 144,000. Urine protein creatinine 2.5 g. BNP 746. Chest x-ray, mild heart failure, moderate enlargement of cardiac contour with mild heart failure. ASSESSMENT: 1. Acute kidney injury on chronic disease possibly secondary to cardiorenal syndrome versus progression of chronic kidney disease to stage V chronic kidney disease. 2. 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 3. Morbid obesity. 4. Anasarca, rule out congestive heart failure versus due to advanced chronic kidney disease. 5. History of cocaine abuse. 6. Type 2 fvj-[id number] myocardial infarction most likely secondary to demand ischemia. 7. Anemia of chronic disease. 8. Short of breath with hypoxia, requiring OxyMask. PLAN: I suspect the patient also has underlying congestive heart failure given the amount of his anasarca. The patient continues to have good urine output and as such, I will change his IV Lasix/bumetanide to Bumex drip at 1 mg per hour to maximize diuresis. If patient continues to be short of breath and not able to have good urine output, or creatinine level continues to rise then most likely he will need dialysis in the very near future. I also agree obtaining a 2D echocardiogram to assess his ejection fraction as well. I will continue his metolazone 10 mg b.i.d. and reassess if he would need dialysis in the near future. I will also start him on calcium acetate 667 mg 2 caps p.o. t.i.d. with meals as I suspect that he has secondary hyperparathyroidism due to advanced CKD causing hypocalcemia as well. Given that he is still hypertensive, I will hold off on giving him erythropoietin- stimulating agent until his blood pressure is under better control. I will monitor him closely with you. Thank you for allowing me to participate in the care of your patient. DT: 21:40:05 TT: 00:00:00 Ref: [id number] - TID: [id number] MTDLianne
[2025-07-14] VITALS (20 sets, daily range): BP systolic 119–157; BP diastolic 68–105; PULSE 67–95; RESP 14–24; TEMP 36.2–36.6; O2SAT 82–99; BMI 48.9
[2025-07-14] MEDS: LEVOTHYROXINE SODIUM 25 MCG TABLET 50 MCG PO (05:09)
[2025-07-14 05:38] LABS: Basophils # (Auto) 0.0 Thou/mm3 (0.0-0.2); Basophils % (Auto) 1 % (0-2.5); Eosinophils # (Auto) 0.2 Thou/mm3 (0.0-0.5); Eosinophils % (Auto) 3 % (0-10); Hematocrit 31.2 % (41.0-53.0); Hemoglobin 9.2 g/dL (13.5-16.0); Immature Granulocytes Auto 0.02 Thou/mm3 (0.00-0.00); Lymphocytes # (Auto) 0.9 Thou/mm3 (1.0-4.8); Lymphocytes % (Auto) 10 % (10-50); Mean Corpuscular HGB Conc 29.5 g/dl (31.0-37.0); Mean Corpuscular Hemoglobin 28.0 pg (25.0-35.0); Mean Corpuscular Volume 95 fL (80-100); Monocytes # (Auto) 0.8 Thou/mm3 (0.0-0.8); Monocytes % (Auto) 9 % (0-12); Neutrophils # (Auto) 6.5 Thou/mm3 (1.8-7.7); Neutrophils % (Auto) 78 % (37-80); Nucleated Red Blood Cell # 0.00 Thou/mm3 (0.00-0.00); Nucleated Red Blood Cell % 0 /100 WBC (0); Platelet Count 172 Thou/mm3 (140-440); RDW Standard Deviation 53.5 fL (35.1-43.9); Red Blood Count 3.29 Miln/mm3 (4.50-5.90); White Blood Count 8.4 Thou/mm3 (3.8-10.6)
[2025-07-14 06:21] LABS: Albumin, Serum 4.0 gm/dL (3.5-5.0); Albumin/Globulin Ratio 1.7 (1.2-2.2); Alkaline Phosphatase 89 U/L (46-116); Anion Gap 13 (7-16); Aspartate Amino Transferase < 10 U/L (0-34); BUN/Creatinine Ratio 7 Ratio (12-20); Bilirubin,Total 0.4 mg/dL (0.3-1.2); Blood Urea Nitrogen 50 mg/dL (9-23); Carbon Dioxide 23.9 mMol/L (20.0-31.0); Chloride 105 mMol/L (98-107); Creatinine (Component) 7.1 mg/dL (0.6-1.3); Estimated Creatinine Clearance 21.7 mL/min (>60); Globulin 2.4 gm/dL (2.3-3.5); Glucose 111 mg/dL (74-106); Magnesium 2.0 mg/dL (1.6-2.6); Osmolality,Calculated 297 (275-295); Phosphorous 7.9 mg/dL (2.4-5.1); Potassium 3.7 mMol/L (3.4-5.1); Sodium 142 mMol/L (136-145); Total Protein 6.4 gm/dL (5.7-8.2); eGFR 9 See Note
[2025-07-14 06:22] LABS: Alanine Aminotransferase 7 U/L (10-49)
[2025-07-14 06:26] LABS: Calcium 6.8 mg/dL (8.3-10.6); Calcium (Corrected) 6.8 mg/dL (8.5-10.1)
[2025-07-14] MEDS: CALCIUM ACETATE 667 MG TABLET 1334 MG PO ×3 (08:18→16:34)
[2025-07-14] MEDS: SEVELAMER CARBONATE 800 MG TABLET PO (08:18)
[2025-07-14] MEDS: CALCIUM GLUC/NS 1000MG IVPB 1,000 MG/50 ML BAG 50 MG IV ×4 (08:18→17:42)
[2025-07-14 08:19] LABS: Glucose Estimated Average 97 mg/dL (80-131); Hemoglobin A1C 5.0 % Hgb (4.8-6.0)
[2025-07-14 08:20] LABS: Free T3 2.2 pg/mL (2.3-4.2); Thyroid Stimulating Hormone 5.14 uIU/mL (0.55-4.78)
--- NOTE | 2025-07-14 09:29 | ESPR_ITS ---
<Statement entered by Lorenza Veras MD - 07/14/25 21:04> Pt is seen at bedside, currently saturating at 91% via oxymask. Pt is on bipap over night. pt continues to have significant 4+ pitting edema in the LE extending to abdomen. Per nephrology recommendation pt is scheduled for tunneled dialysis catheter and will undergo dialysis on tuesday. Echo is obtained pending official read. Will continue aggressive diuresis and replete electrolytes as needed. Patient was seen and examined by me personally. I have directly supervised and reviewed documentation by the team resident and agree with its findings. ------- Plan of care was discussed with the attending, Dr. Rito Veras, PGY-2 Documentation for date of: 07/14/25 Subjective Subjective Interval history: Patient seen and examined at bedside. Was placed on BiPap for few hours this morning because satting in 80s. Diffuse anasarca and lower extremity pitting edema has not improved. Patient put out 6.5 liters overnight for a net negative of 5 L. Patient did mention that he takes hydrochlorothiazide at home but has not month because he ran out. BUN 50 and stable, Creatinine 7.1 from 7 and 6.8. Corrected calcium 6.8-He is on scheduled calcium acetate TID with meals. Received 2.6 grams over night. Will plan for 4 grams IV calcium in addition to scheduled doses. Renal function panel this afternoon. Phos 7.9 from 7.1. Gave 800 mg sevelamer. Exam Vital Signs Temp Pulse Resp BP Pulse Ox O2 Del Method O2 Flow Rate 97.8 F 71 24 H 157/105 H 82 L Oxy Mask 5 07/14/25 04:00 07/14/25 08:18 07/14/25 07:27 07/14/25 08:18 07/14/25 07:27 07/14/25 04:00 07/14/25 07:27 FiO2 45 07/14/25 05:04 Narrative Exam General: Obese man, diffuse anasarca. Awake and in no acute distress. Conversational and non-toxic appearing. Neurologic: GCS 15. Alert and oriented x3, no gross neurological deficit, and patient able to move all 4 extremities. HEENT: Normocephalic, atraumatic, mucous membranes moist. Pupils reactive to light. Heart: Regular rate and rhythm, normal S1 and S2, no murmurs. Lungs: Clear to auscultation bilaterally with no wheezing or crackles. Abdomen: Obese, pitting edema diffusely in the bilateral lower quadrants. No guarding or rebound tenderness. Extremities: Bilateral lower extremity pitting edema up to the hips. 2+ radial and dorsalis pedis pulses bilaterally. Skin: Warm. Dry. No rash or ecchymoses. Objective Labs 07/14/25 04:51 07/14/25 04:51 Labs: Laboratory Results - last 24 hr 07/13/25 07/14/25 19:20 04:51 WBC 8.4 RBC 3.29 L Hgb 9.2 L Hct 31.2 L MCV 95 MCH 28.0 MCHC 29.5 L RDW Std Deviation 53.5 H Plt Count 172 D Neut % (Auto) 78 Lymph % (Auto) 10 Scurry % (Auto) 9 Eos % (Auto) 3 Baso % (Auto) 1 Neut # (Auto) 6.5 Lymph # (Auto) 0.9 L [place] # (Auto) 0.8 Eos # (Auto) 0.2 Baso # (Auto) 0.0 Immature Gran # (Auto) 0.02 H Absolute Nucleated RBC 0.00 Immature Gran % 0 Nucleated RBC % 0 Sodium 143 142 Potassium 4.0 3.7 Chloride 107 105 Carbon Dioxide 23.1 23.9 Anion Gap 13 13 BUN 50 H 50 H Creatinine 7.0 H* 7.1 H* Estim Creat Clear Calc 22.0 L 21.7 L eGFR 10 L* 9 L* BUN/Creatinine Ratio 7 L 7 L Glucose [address] Glu mg/dL 97 Hemoglobin A1c 5.0 Calculated Osmolality 300 H 297 H Calcium 6.7 L* 6.8 L* Corrected Calcium 6.7 L* 6.8 L* Phosphorus 7.9 H Magnesium 2.0 Total Bilirubin 0.4 0.4 AST < 10 < 10 ALT 9 L 7 L Alkaline Phosphatase 85 89 Total Protein 6.3 6.4 Albumin 4.1 4.0 Globulin 2.2 L 2.4 Albumin/Globulin Ratio 1.9 1.7 TSH 5.14 H Free T3 pg/dL 2.2 L Quality Measures Quality Measures none Assessment & Plan Assessment Current Active Medications: Generic Name Dose Route Start Last Admin Trade Name Freq PRN Reason Stop Dose Admin Acetaminophen 650 mg 07/12/25 18:13 Acetaminophen 325 Mg Tablet PO 08/11/25 18:12 Q6H PRN Fever >101.5 Acetaminophen 650 mg 07/12/25 18:13 Acetaminophen 325 Mg Tablet PO 08/11/25 18:12 Q6H PRN PAIN SCALE 1-3 (mild Hydrocodone Bitart/Acetaminophen 1 tab 07/12/25 18:13 07/13/25 10:31 Hydrocodone/Apap 5/325 Tablet PO 07/17/25 18:12 1 tab Q4HR PRN Administration PAIN SCALE 4-6 (Moderate Calcium Acetate 1,334 mg 07/13/25 17:30 07/14/25 08:18 Calcium Acetate 667 Mg Tablet PO 08/12/25 17:29 1,334 mg TIDWM HOLLIS Administration Carvedilol 12.5 mg 07/13/25 17:30 07/14/25 08:18 Carvedilol 12.5 Mg Tablet PO 08/12/25 17:29 12.5 mg BIDWM HOLLIS Administration Hydralazine HCl 50 mg 07/12/25 22:00 07/14/25 05:10 Hydralazine Hcl 25 Mg Tablet PO 08/11/25 21:59 50 mg TID HOLLIS Administration Bumetanide 20 mg/ IV 80 mls @ 4 mls/hr 07/13/25 15:15 07/13/25 15:57 Miscellaneous Supplies IV 07/14/25 11:14 1 mg/hr .Q20H HOLLIS 4 mls/hr 1 MG/HR Administration Labetalol HCl 10 mg 07/12/25 19:44 07/12/25 20:11 Labetalol Inj 5 Mg/Ml Vial 20 Ml IVP 08/11/25 19:43 10 mg Q4H PRN Administration SBP > 180 Levothyroxine Sodium 50 mcg 07/13/25 06:00 07/14/25 05:09 Levothyroxine Sodium 25 Mcg Tablet PO 08/12/25 05:59 50 mcg ACBR HOLLIS Administration Metolazone 10 mg 07/13/25 21:00 07/13/25 21:00 Metolazone 2.5 Mg Tablet PO 08/12/25 20:59 10 mg BID HOLLIS Administration Pantoprazole Sodium 40 mg 07/13/25 09:00 07/14/25 08:17 Pantoprazole Inj 40 Mg Vial IVP 08/12/25 08:59 40 mg QDAY HOLLIS Administration Plan Summary: Patient is a 40 yo M with PMH of ESRD, hypothyroidism, HTN, gout, morbid obesity presenting to ED with fluid overload and shortness of breath; patient admitted on 07/12/25 for anasarca. #Anasarca secondary to #Possible CKD progressing to ESRD and #Possible CHF Patient has 4+ edema bilaterally to above knee and significant abdominal distention. Admission creatinine 7.0, corrected calcium 6.8, troponin 0.146, BNP 746. CXR showed mild heart failure. Renal u/s- no visualization due to body habitus. Patient mentioned that he takes hydrochlorothiazide at home but has not been taking it over the last month or 2 because he ran out. He said that he normally weighs around 300 pounds but the day prior to admission he weighed about 350 pounds. Patient's peripheral pitting edema has not improved. 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 Chest x-ray 07/14/25 showed bilateral opacities. Patient is net negative about 4 L yet is still severely edematous and short of breath. Plan: Nephrology plans for tunneled dialysis catheter insertion on 07-15-2025 Bumex 3 mg per hour IV per nephrology Metolazone 10 mg BID Consulted cardiology, echo ordered Doppler ultrasound ordered bilateral LE Strict I&O, Daily weight, 1000ml restriction #HFrEF Echocardiogram showed an EF of about 35% per surgical instrument technician, pending official cardiology read. Plan: Continue diuresis #HTN BP on admission- 172/102; up to 192/108, most recently 124/68 Plan: Continue Hydralazine 50 TID, parameter to hold for SBP less than 130 Continue Coreg 25 BID Labetalol 10 q4h for SBP > 180 Diuresis as above #Hypocalcemia Consider secondary hyperparathyroidism in the presence of CKD: Vitamin D is unable to be converted into its active form leading to reduced calcium absorption from the gut. EKG showed a QT interval of over 500 likely secondary to hypocalcemia. Plan: Calcium acetate 1.3g TID with meals Will plan for 4 g IV calcium Will repeat renal function panel #Hypothyroidism On levothyroxine 50 at home TSH: 5.14 Free T3: 2.2 Plan: Continue home levothyroxine #History of Gout On allopurinol at home Plan: Hold for now Disposition: Continuing diuresis, pending echo read, monitoring calcium levels, plan for tunneled dialysis catheter tomorrow. DVT prophylaxis: Subcu heparin 5000 Q 12 Diet: Renal Lines: PIV CODE STATUS: Full Patient was seen and discussed with my attending physician Dr. Rito MONTES and my senior resident Dr. Rito MONTES PGY-2. Daniele Hoffman DO PGY-1. Attending Provider Attestation/Addendum I Zeke Veras MD reviewed the note and agree with the resident's assessment & plan with modifications/additions/exceptions as below. I have personally reviewed labs, imaging, home meds/prior records, examined the patient, formulated and discussed management plan with the IM team. A 40-year-old male with morbid obesity ESRD and heart failure admitted with NSTEMI, hypocalcemia, QT prolongation and acute decompensation of congestive heart failure. Continues to significant shortness of breath have and anasarca, TTE with EF 35%, diuresed well overnight with net -4 L however continued to have resistant hypocalcemia. Replace with calcium gluconate IV x 4 gm, agree with Bumex infusion, repeat EKG and serum electrolytes in 12 hours, hold allopurinol, increase Coreg to 25 mg twice daily, continue hydralazine,. Will gradually add GDMT as tolerated. Will also obtain US duplex lower extremity to evaluate for possible DVT, limit fluid intake to 1.2 L/day, continue BiPAP therapy as tolerated, will repeat CXR and EKG. Nephrology is on board plan for TDC placement for potential dialysis In the setting of advanced kidney disease. Will use heparin 5000 every 8 hours for DVT prophylaxis.
--- NOTE | 2025-07-14 10:48 | EKG_ITS ---
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
--- NOTE | 2025-07-14 10:53 | XR_ITS ---
EXAMINATION: AP chest single view TECHNIQUE: AP portable semiupright chest single view Date and time: July 14, 2025, 12 0 6:00 p.m., comparison July 12, 2025 INDICATIONS: Shortness of breath today. FINDINGS: Moderate CHF. Mild enlargement cardiac contour. Prominent vascular congestion with perihilar edema Prominent osteopenia IMPRESSION: Moderate CHF
--- NOTE | 2025-07-14 10:53 | XR_ITS ---
Examination: Venous duplex lower extremity sonogram, bilateral. Date and time of exam: July 14, 2025, 1342 hours INDICATIONS: Bilateral leg swelling beginning 3 weeks ago Technique: Multiple sonographic images of the deep venous system have been obtained. B-mode/2-D grayscale imaging of vascular structures and Doppler spectral analysis (waveforms) and color performed Both legs are examined. Findings: Deep venous systems do not demonstrate abnormal echogenicity. Limited visualization, secondary to patient size and edema All visualized deep veins exhibit compressibility. All visualized deep veins exhibit augmentation. Impression: Limited study, no DVT demonstrated i
--- NOTE | 2025-07-14 14:28 | PD.IMCONS ---
HPI Data of Consult Requesting Physician: Erma Bacon DO Primary Care Provider: Guerda Mccoy MD Consult Narrative History of present illness: This is a 40-year-old male with past medical history of hypertension, gout, morbid obesity, hypothyroidism, pt seen in the ER wih edema of the leg and sob pt has h/o ofCRF noted to have troponin elevation .13, .14 most likely type 2MI cc:: cc: Erma Bacon DO Meds Home Medications and Allergies Home Medications ?Medication ?Instructions ?Recorded ?Confirmed ?Type allopurinol 300 mg tablet 300 mg PO .am 07/13/25 07/13/25 History amlodipine 10 mg tablet 10 mg PO DAILY 07/13/25 07/13/25 History calcitriol 0.25 mcg capsule 0.25 mcg PO HS 07/13/25 07/13/25 History clonidine 0.2 mg/24 hr weekly 0.2 mg topical .week 07/13/25 07/13/25 History transdermal patch dapagliflozin propanediol 10 mg 10 mg PO DAILY 07/13/25 07/13/25 History tablet (Farxiga) ergocalciferol (vitamin D2) 1,250 1,250 mcg PO .week 07/13/25 07/13/25 History mcg (50,000 unit) capsule furosemide 40 mg tablet 40 mg PO DAILY 07/13/25 07/13/25 History hydralazine 50 mg tablet 50 mg PO TID 07/13/25 07/13/25 History hydrochlorothiazide 12.5 mg tablet 12.5 mg PO .am 07/13/25 07/13/25 History levothyroxine 50 mcg tablet 50 mcg PO .AM 07/13/25 07/13/25 History lisinopril 5 mg tablet 5 mg PO DAILY 07/13/25 07/13/25 History terazosin 5 mg capsule 5 mg PO HS 07/13/25 07/13/25 History Allergies Allergy/AdvReac Type Severity Reaction Status Date / Time No Known Allergies Allergy Verified 07/12/25 15:09 Exam Vital Signs Temp Pulse Resp BP Pulse Ox O2 Del Method O2 Flow Rate 97.9 F 73 20 124/68 94 L Room Air 4 07/14/25 12:00 07/14/25 13:07 07/14/25 12:00 07/14/25 13:07 07/14/25 12:00 07/14/25 12:00 07/14/25 08:00 FiO2 45 07/14/25 05:04 Routine HEENT Exam Head: Present normocephalic and atraumatic Eye: Present EOMI and PERRL ENT: Present mucous membranes moist Routine Neck Exam Neck: Present supple and trachea midline Routine Respiratory Exam Respiratory: Present chest non-tender, lungs clear, normal breath sounds and no resp distress Routine Cardiovascular Exam Cardiovascular: Present RRR Routine Abdominal Exam Abdominal: Present soft and normoactive bowel sounds Routine Extremities Exam Extremities: Present full ROM Routine Skin Exam Skin: Present intact, dry and warm Routine Neurological Exam Neurological: Present alert, oriented X3 and CN II-XII intact Routine Psychiatric Exam Psychiatric: Present normal affect and normal thought process Results Labs 07/14/25 04:51 07/14/25 04:51 Labs: Short CBC 07/14/25 Range/Units 04:51 WBC 8.4 (3.8-10.6) Thou/mm3 Hgb 9.2 L (13.5-16.0) g/dL Hct 31.2 L (41.0-53.0) % Plt Count 172 D (140-440) Thou/mm3 BMP 07/13/25 07/14/25 19:20 04:51 Sodium 143 142 Potassium 4.0 3.7 Chloride 107 105 Carbon Dioxide 23.1 23.9 BUN 50 H 50 H Creatinine 7.0 H* 7.1 H* Glucose 128 H 111 H Calcium 6.7 L* 6.8 L* Liver Function 07/13/25 07/14/25 Range/Units 19:20 04:51 Total Bilirubin 0.4 0.4 (0.3-1.2) mg/dL AST < 10 < 10 (0-34) U/L ALT 9 L 7 L (10-49) U/L Alkaline Phosphatase 85 89 (46-116) U/L Albumin 4.1 4.0 (3.5-5.0) gm/dL Assessment and Plan Assessment and plan (1) CHF (congestive heart failure): Status: Acute (2) ESRD (end stage renal disease): Status: Acute (3) Elevated troponin: Status: Acute Additional Assessment & Plan Additional Plan: troponin mild doubt ACS mostlikely Type 2 continue treatment for CRF
--- NOTE | 2025-07-14 15:14 | PC.SS ---
Rounding: Nephrology Dr. Nunez consulted, may need HD in near future. SS will be on standby if HD Chair needs to be established.
[2025-07-14 15:42] LABS: Anion Gap 13 (7-16); Calcium 6.9 mg/dL (8.3-10.6); Carbon Dioxide 22.3 mMol/L (20.0-31.0); Chloride 106 mMol/L (98-107); Potassium 4.0 mMol/L (3.4-5.1); Sodium 141 mMol/L (136-145)
[2025-07-14 15:49] LABS: Albumin, Serum 3.7 gm/dL (3.5-5.0); BUN/Creatinine Ratio 6 Ratio (12-20); Blood Urea Nitrogen 47 mg/dL (9-23); Calcium (Corrected) 7.1 mg/dL (8.5-10.1); Creatinine (Component) 7.6 mg/dL (0.6-1.3); Estimated Creatinine Clearance 20.1 mL/min (>60); Glucose 139 mg/dL (74-106); Osmolality,Calculated 295 (275-295); Phosphorous 7.6 mg/dL (2.4-5.1); eGFR 9 See Note
[2025-07-14] MEDS: TUBERCULIN PPD INJ 5 UNIT/0.1 ML DOSE ID (16:55)
[2025-07-14] MEDS: HYDROcodone/APAP 5/325 TABLET 1 TAB PO (21:01)
[2025-07-15] VITALS (35 sets, daily range): BP systolic 124–168; BP diastolic 78–104; PULSE 60–79; RESP 15–23; TEMP 36.1–36.9; O2SAT 94–100; BMI 48.9; BMI 49.1
--- NOTE | 2025-07-15 | XR_ITS ---
Fluoroscopic and ultrasound-guided right internal jugular vein tunneled dual lumen dialysis catheter placement. Date: 06/24/2025, 3:37 p.m. Indication: Renal failure Fluoroscopy time: 5.9 minutes Dose: 251.68 mGy Technique: After a discussion of risks and benefits informed consent was obtained. Patient was brought to the angiography suite and placed supine on the exam table. Preliminary ultrasound evaluation demonstrated the right internal jugular vein to be patent. This was targeted for catheter placement. The skin overlying the right IJ was cleaned and draped in normal sterile surgical fashion.20 cc's of 1% lidocaine was used for local anesthesia. Using ultrasound guidance access to the right internal jugular vein was obtained with a micropuncture needle. An 0.018 wire was advanced through the needle into the SVC and the needle was withdrawn. 5 [place] sheath was placed over the wire, the wire was removed and the sheath was capped. 5 cm subcutaneous tunnel was created from the anterior lateral right chest wall to the right IJ access site. 23 cm dual-lumen 15 [place] dialysis catheter was attached to the tunneling device and pulled through the tunnel exiting at the right IJ access site. A 0.035 wire was advanced through the sheath into the IVC. The tract was serially dilated and a 15 [place] peel-away sheath was placed. Catheter tips were advanced through the sheath and the sheath removed. Distal catheter tips were positioned in the distal SVC. Both ports flushed and aspirated easily and were filled with an appropriate volume of 1,000:1 heparinized saline. Catheter was secured to the skin with a 2-0 silk suture. Right IJ access site was closed with a 2-0 silk suture. Catheter was covered with a sterile dressing. There were no immediate complications. Impression: Successful 23 cm right IJ tunneled dialysis catheter placement as above. Catheter is ready for use.
[2025-07-15] MEDS: LEVOTHYROXINE SODIUM 25 MCG TABLET 50 MCG PO (05:33)
[2025-07-15 05:45] LABS: Basophils # (Auto) 0.0 Thou/mm3 (0.0-0.2); Basophils % (Auto) 0 % (0-2.5); Eosinophils # (Auto) 0.2 Thou/mm3 (0.0-0.5); Eosinophils % (Auto) 3 % (0-10); Hematocrit 30.1 % (41.0-53.0); Hemoglobin 9.2 g/dL (13.5-16.0); Immature Granulocytes Auto 0.01 Thou/mm3 (0.00-0.00); Lymphocytes # (Auto) 0.9 Thou/mm3 (1.0-4.8); Lymphocytes % (Auto) 12 % (10-50); Mean Corpuscular HGB Conc 30.6 g/dl (31.0-37.0); Mean Corpuscular Hemoglobin 29.1 pg (25.0-35.0); Mean Corpuscular Volume 95 fL (80-100); Monocytes # (Auto) 0.7 Thou/mm3 (0.0-0.8); Monocytes % (Auto) 10 % (0-12); Neutrophils # (Auto) 5.4 Thou/mm3 (1.8-7.7); Neutrophils % (Auto) 75 % (37-80); Nucleated Red Blood Cell # 0.00 Thou/mm3 (0.00-0.00); Nucleated Red Blood Cell % 0 /100 WBC (0); Platelet Count 129 Thou/mm3 (140-440); RDW Standard Deviation 53.5 fL (35.1-43.9); Red Blood Count 3.16 Miln/mm3 (4.50-5.90); White Blood Count 7.2 Thou/mm3 (3.8-10.6)
[2025-07-15 06:27] LABS: Alanine Aminotransferase < 7 U/L (10-49); Albumin, Serum 3.7 gm/dL (3.5-5.0); Albumin/Globulin Ratio 1.7 (1.2-2.2); Alkaline Phosphatase 83 U/L (46-116); Anion Gap 13 (7-16); Aspartate Amino Transferase < 10 U/L (0-34); BUN/Creatinine Ratio 7 Ratio (12-20); Bilirubin,Total 0.3 mg/dL (0.3-1.2); Blood Urea Nitrogen 59 mg/dL (9-23); Calcium 7.0 mg/dL (8.3-10.6); Calcium (Corrected) 7.2 mg/dL (8.5-10.1); Carbon Dioxide 24.3 mMol/L (20.0-31.0); Chloride 105 mMol/L (98-107); Creatinine (Component) 8.1 mg/dL (0.6-1.3); Estimated Creatinine Clearance 18.9 mL/min (>60); Globulin 2.2 gm/dL (2.3-3.5); Glucose 108 mg/dL (74-106); Magnesium 2.1 mg/dL (1.6-2.6); Osmolality,Calculated 300 (275-295); Phosphorous 8.2 mg/dL (2.4-5.1); Potassium 3.9 mMol/L (3.4-5.1); Sodium 142 mMol/L (136-145); Total Protein 5.9 gm/dL (5.7-8.2); eGFR 8 See Note
[2025-07-15 06:45] LABS: Hepatitis A Antibody IgM Non Reactive (Non React); Hepatitis B Core Antibody IgM Non Reactive (Non React); Hepatitis B Surface Antigen Non Reactive (Non React); Hepatitis C Antibody Non Reactive (Non React)
[2025-07-15] MEDS: CALCIUM GLUC/NS 1000MG IVPB 1,000 MG/50 ML BAG 50 MG IV (08:19)
[2025-07-15] MEDS: POTASSIUM CHL 10 mEq IVPB 10 MEQ/100 ML BAG 100 MEQ IV ×2 (08:19→09:50)
[2025-07-15 09:07] LABS: INR 1.1 (0.9-1.3); Partial Thromboplastin Time 29.6 Seconds (22.0-36.0); Prothrombin Time 11.2 Seconds (9.0-12.2)
--- NOTE | 2025-07-15 09:46 | PC.SS ---
SS was informed this morning by Dr. Veras that pt will need HD. SS sent over referral to F# [phone] [facility], Dr. Nunez is Compliance Associate. Pt is pending HD cath and HD sessions. SS called [facility] [phone] and spoke to Barb to inform her of new chair for a new pt. SS provided call back number in case they need anything additionally.
--- NOTE | 2025-07-15 09:59 | ESPR_ITS ---
<Statement entered by Lorenza Veras MD - 07/16/25 17:08> Patient is seen at bedside. Continues to have significant shortness of breath and significant pitting edema in the lower extremities bilaterally extending all the way to his abdomen. Edema is at least 4+. Patient continues to use BiPAP overnight and is currently saturating on 4 L oxygen via nasal cannula. Plan is to undergo tunneled dialysis catheter placement and a session of dialysis for fluid removal. Patient is also pending outpatient dialysis chair. Patient was seen and examined by me personally. I have directly supervised and reviewed documentation by the team resident and agree with its findings. ------- Plan of care was discussed with the attending, Dr. Arleen Veras, PGY-2 Documentation for date of: 07/15/25 Subjective Subjective Interval history: Patient seen and examined at bedside. Tunneled dialysis catheter insertion planned for today followed by dialysis. Exam Vital Signs Temp Pulse Resp BP Pulse Ox O2 Del Method O2 Flow Rate 98.2 F 65 19 138/89 H 99 BiPAP 4.5 07/15/25 08:00 07/15/25 08:00 07/15/25 08:00 07/15/25 08:00 07/15/25 08:00 07/15/25 08:00 07/15/25 08:00 FiO2 45 07/15/25 08:00 Narrative Exam General: Obese man, diffuse anasarca. Awake and in no acute distress. Conversational and non-toxic appearing. Neurologic: GCS 15. Alert and oriented x3, no gross neurological deficit, and patient able to move all 4 extremities. HEENT: Normocephalic, atraumatic, mucous membranes moist. Pupils reactive to light. Heart: Regular rate and rhythm, normal S1 and S2, no murmurs. Lungs: Clear to auscultation bilaterally with no wheezing or crackles. Abdomen: Obese, pitting edema diffusely in the bilateral lower quadrants. No guarding or rebound tenderness. Extremities: Bilateral lower extremity pitting edema up to the hips. 2+ radial and dorsalis pedis pulses bilaterally. Skin: Warm. Dry. No rash or ecchymoses. Objective Labs 07/16/25 08:18 07/16/25 08:18 Labs: Laboratory Results - last 24 hr 07/14/25 07/15/25 15:12 04:50 WBC 7.2 RBC 3.16 L Hgb 9.2 L Hct 30.1 L MCV 95 MCH 29.1 MCHC 30.6 L RDW Std Deviation 53.5 H Plt Count 129 L D Neut % (Auto) 75 Lymph % (Auto) 12 [place] % (Auto) 10 Eos % (Auto) 3 Baso % (Auto) 0 Neut # (Auto) 5.4 Lymph # (Auto) 0.9 L [place] # (Auto) 0.7 Eos # (Auto) 0.2 Baso # (Auto) 0.0 Immature Gran # (Auto) 0.01 H Absolute Nucleated RBC 0.00 Immature Gran % 0 Nucleated RBC % 0 PT 11.2 INR 1.1 APTT 29.6 Sodium 141 142 Potassium 4.0 3.9 Chloride 106 105 Carbon Dioxide 22.3 24.3 Anion Gap 13 13 BUN 47 H 59 H Creatinine 7.6 H* D 8.1 H* D Estim Creat Clear Calc 20.1 L 18.9 L eGFR 9 L* 8 L* BUN/Creatinine Ratio 6 L 7 L Glucose 139 H 108 H Calculated Osmolality 295 300 H Calcium 6.9 L 7.0 L Corrected Calcium 7.1 L 7.2 L Phosphorus 7.6 H 8.2 H Magnesium 2.1 Total Bilirubin 0.3 AST < 10 ALT < 7 L Alkaline Phosphatase 83 Total Protein 5.9 Albumin 3.7 3.7 Globulin 2.2 L Albumin/Globulin Ratio 1.7 Hepatitis A IgM Ab Non Reactive Hep Bs Antigen Non Reactive Hep B Core IgM Ab Non Reactive Hepatitis C Antibody Non Reactive Quality Measures Quality Measures none Assessment & Plan Assessment Current Active Medications: Generic Name Dose Route Start Last Admin Trade Name Jonathan PRN Reason Stop Dose Admin Acetaminophen 650 mg 07/12/25 18:13 Acetaminophen 325 Mg Tablet PO 08/11/25 18:12 Q6H PRN Fever >101.5 Acetaminophen 650 mg 07/12/25 18:13 Acetaminophen 325 Mg Tablet PO 08/11/25 18:12 Q6H PRN PAIN SCALE 1-3 (mild Hydrocodone Bitart/Acetaminophen 1 tab 07/12/25 18:13 07/14/25 21:01 Hydrocodone/Apap 5/325 Tablet PO 07/17/25 18:12 1 tab Q4HR PRN Administration PAIN SCALE 4-6 (Moderate Calcium Acetate 1,334 mg 07/13/25 17:30 07/15/25 08:31 Calcium Acetate 667 Mg Tablet PO 08/12/25 17:29 Not Given TIDWM HOLLIS Carvedilol 25 mg 07/14/25 17:30 07/14/25 16:33 Carvedilol 12.5 Mg Tablet PO 08/13/25 17:29 25 mg BIDWM HOLLIS Administration Hydralazine HCl 50 mg 07/14/25 14:00 07/15/25 05:33 Hydralazine Hcl 25 Mg Tablet PO 08/11/25 13:59 50 mg TID HOLLIS Administration Labetalol HCl 10 mg 07/12/25 19:44 07/12/25 20:11 Labetalol Inj 5 Mg/Ml Vial 20 Ml IVP 08/11/25 19:43 10 mg Q4H PRN Administration SBP > 180 Levothyroxine Sodium 50 mcg 07/13/25 06:00 07/15/25 05:33 Levothyroxine Sodium 25 Mcg Tablet PO 08/12/25 05:59 50 mcg ACBR HOLLIS Administration Metolazone 10 mg 07/13/25 21:00 07/14/25 21:00 Metolazone 2.5 Mg Tablet PO 08/12/25 20:59 10 mg BID HOLLIS Administration Pantoprazole Sodium 40 mg 07/16/25 09:00 Pantoprazole 40 Mg Tablet PO 08/15/25 08:59 QDAY HOLLIS Protocol Plan Summary: Patient is a 40 yo M with PMH of ESRD, hypothyroidism, HTN, gout, morbid obesity presenting to ED with fluid overload and shortness of breath; patient admitted on 07/12/25 for anasarca. #Anasarca secondary to #Possible CKD progressing to ESRD and #Possible CHF #Hyperphosphatemia Patient has 4+ edema bilaterally to above knee and significant abdominal distention. Admission creatinine 7.0, corrected calcium 6.8, troponin 0.146, BNP 746. CXR showed mild heart failure. Renal u/s- no visualization due to body habitus. Patient mentioned that he takes hydrochlorothiazide at home but has not been taking it over the last month or 2 because he ran out. He said that he normally weighs around 300 pounds but the day prior to admission he weighed about 350 pounds. Patient's peripheral pitting edema has not improved. Patient is short of breath and required BiPAP morning of 07/14/2025 after desatting into the 80s in the environmental conflict manager hours. Chest x-ray 07/14/25 showed bilateral opacities. Doppler ultrasound bilateral LE negative for DVT Phosphorus level remains elevated despite multiple doses of sevelamer, consider in the presence of CKD Plan: Nephrology plans for tunneled dialysis catheter insertion on 07-15-2025 Metolazone 10 mg BID Strict I&O, Daily weight, 1000ml restriction #Pulmonary Hypertension Consider in the prescence of long-standing fluid overload and HTN Patient has not taken his hydrochlorothiazide for over a month prior to admission Estimated RVSP is 44 mmHg on echo Consider Group 1 pulmonary Hypertension due to previous cocaine use Consider Group 2 pulmonary Hypertension due to LV systolic dysfunction with HFrEF EF 35-40% Plan: Will treat the most likely underlying cause, long-standing fluid overload leading to systolic dysfunction, with dialysis #HFrEF Echocardiogram showed an EF of about 35-40%, mild concentric hypertrophy of the left ventricle, and right ventricular systolic pressure 44 mmHg Plan: Plan for dialysis as above #HTN BP on admission- 172/102 Difficult to determine if elevated creatinine qualifies for HTN emergency, however this elevation is more likely due to CKD instead of HTN leading to kidney damage Plan: Continue Hydralazine 50 TID, parameter to hold for SBP less than 130 Continue Coreg 25 BID Labetalol 10 q4h for SBP > 180 #Hypocalcemia Consider secondary hyperparathyroidism in the presence of CKD: Vitamin D is unable to be converted into its active form leading to reduced calcium absorption from the gut. EKG showed a QT interval of over 500 likely secondary to hypocalcemia. Also consider in the presence of dieresis Plan: Calcium acetate 1.3g TID with meals #Hypothyroidism On levothyroxine 50 at home TSH: 5.14 Free T3: 2.2 Plan: Continue home levothyroxine #History of Gout On allopurinol at home Plan: Hold for now Disposition: Plan for tunneled dialysis catheter today. DVT prophylaxis: Subcu heparin 5000 Q 12 Diet: Renal Lines: PIV CODE STATUS: Full Patient was seen and discussed with my attending physician Dr. Arleen GARCIA and my senior resident Dr. Rito MONTES PGY-2. Daniele Hoffman DO PGY-1. Attending Provider Attestation/Addendum Erma [place] DO, attest that I was physically present for the borrero portions of the service and evaluated the patient with the resident and I reviewed and discussed the case with the resident and agree with the resident's findings and plans of care as documented above Patient seen and evaluated this AM. Patient states shortness of breath has slightly improved, but he remains on 5L/NC. He continues to have 3+pitting edema despite continued IV diuresis. Case discussed with nephrology over the phone. Plan to place HD catheter today by IR. Will start dialysis following catheter placement. Case discussed with social sciences research scientist, will arrange for outpatient dialysis. TSH noted to be elevated at 5.14. Patient states that he takes it in the AM on an empty stomach. Will increase levothyroxine dose 75mcg acbr. Echocardiogram was done over the weekend showing ejection fraction of 35 to 40% and mild concentric hypertrophy. He has pulmonary hypertension of 44 mmHg. Patient is wearing BiPAP at night as he likely has MAGAN. Patient is to start dialysis and would continue with 3 consecutive sessions of dialysis. Case discussed with social sciences research scientist to arrange for outpatient dialysis. Anticipate discharge within the next 48 hours.
--- NOTE | 2025-07-15 14:06 | ESPR_ITS ---
Documentation for date of: 07/15/25 Subjective Subjective Interval history: Patient somewhat short of breath Ejection fraction 35% Currently on metolazone carvedilol hydralazine Consider Entresto Exam Vital Signs Temp Pulse Resp BP Pulse Ox O2 Del Method O2 Flow Rate 98.1 F 71 18 131/78 H 94 L Room Air 4 07/15/25 13:45 07/15/25 13:45 07/15/25 13:45 07/15/25 13:45 07/15/25 13:45 07/15/25 13:45 07/15/25 13:45 FiO2 45 07/15/25 08:00 Routine HEENT Exam Head: Present normocephalic and atraumatic Eye: Present EOMI and PERRL ENT: Present mucous membranes moist Routine Neck Exam Neck: Present supple and trachea midline Routine Respiratory Exam Respiratory: Present chest non-tender, lungs clear, normal breath sounds and no resp distress Routine Cardiovascular Exam Cardiovascular: Present RRR Routine Abdominal Exam Abdominal: Present soft and normoactive bowel sounds Routine Extremities Exam Extremities: Present full ROM Routine Skin Exam Skin: Present intact, dry and warm Routine Neurological Exam Neurological: Present alert, oriented X3 and CN II-XII intact Routine Psychiatric Exam Psychiatric: Present normal affect and normal thought process Objective Labs 07/15/25 04:50 07/15/25 04:50 Labs: Laboratory Results - last 24 hr 07/14/25 07/15/25 15:12 04:50 WBC 7.2 RBC 3.16 L Hgb 9.2 L Hct 30.1 L MCV 95 MCH 29.1 MCHC 30.6 L RDW Std Deviation 53.5 H Plt Count 129 L D Neut % (Auto) 75 Lymph % (Auto) 12 [place] % (Auto) 10 Eos % (Auto) 3 Baso % (Auto) 0 Neut # (Auto) 5.4 Lymph # (Auto) 0.9 L [place] # (Auto) 0.7 Eos # (Auto) 0.2 Baso # (Auto) 0.0 Immature Gran # (Auto) 0.01 H Absolute Nucleated RBC 0.00 Immature Gran % 0 Nucleated RBC % 0 PT 11.2 INR 1.1 APTT 29.6 Sodium 141 142 Potassium 4.0 3.9 Chloride 106 105 Carbon Dioxide 22.3 24.3 Anion Gap 13 13 BUN 47 H 59 H Creatinine 7.6 H* D 8.1 H* D Estim Creat Clear Calc 20.1 L 18.9 L eGFR 9 L* 8 L* BUN/Creatinine Ratio 6 L 7 L Glucose 139 H 108 H Calculated Osmolality 295 300 H Calcium 6.9 L 7.0 L Corrected Calcium 7.1 L 7.2 L Phosphorus 7.6 H 8.2 H Magnesium 2.1 Total Bilirubin 0.3 AST < 10 ALT < 7 L Alkaline Phosphatase 83 Total Protein 5.9 Albumin 3.7 3.7 Globulin 2.2 L Albumin/Globulin Ratio 1.7 Hepatitis A IgM Ab Non Reactive Hep Bs Antigen Non Reactive Hep B Core IgM Ab Non Reactive Hepatitis C Antibody Non Reactive Assessment & Plan A&P Narrative HPrEF Continue carvedilol metolazone hydralazine Consider adding Entresto Time Spent With Patient Time: Total time spent is greater than 50% in coordination of care (as documented) at patient's floor/unit and/or counseling patient:
--- NOTE | 2025-07-15 14:40 | PC.SS ---
Rounding: Pending tunnel cath, DC plan home pending chair with KELLY Coombs
--- NOTE | 2025-07-15 14:51 | ESPR_ITS ---
RE: JOSLYN SALAZAR : 1985 DATE OF SERVICE: 07/15/2025 HISTORY OF PRESENT ILLNESS: This patient is a 40-year-old -[place] gentleman with longstanding hypertension, morbid obesity, and stage IV CKD at least since 04/2023, who presented to emergency room on 07/12/2025 after he was told by his primary care to go to emergency room due to increasing shortness of breath and leg swelling. Patient has been short of breath and swollen for about 2 weeks prior to seeing his primary care physician. When he presented to the emergency room on 07/12/2025, he was profoundly edematous with hypoxia. Patient was admitted and was seen by me. We initially started with high dose of Lasix and converted it to Bumex drip. Patient made a lot of urine, however, still very swollen and short of breath. When he was admitted, patient's creatinine level was 7, which continued to rise. Creatinine today was noted at 8.1. Patient has good urine output and was able to transition from OxyMask to nasal cannula requiring 6 liters of O2 per minute. Patient is still considerably very swollen and still short of breath even with good urine output. He had a 2D echocardiogram done also over the weekend, and it revealed an EF of 35-40% with the left ventricular size mildly enlarged. There was a dilated IVC with estimated RA pressure of 15 mmHg. CURRENT MEDICATIONS: 1. Bumex drip at 1 mg per hour. 2. Acetaminophen. 3. Calcium acetate 1334 mg p.o. t.i.d. with meals. 4. Carvedilol 12.5 mg x1, increased to 25 mg p.o. b.i.d. 5. Hydralazine 50 mg p.o. t.i.d. 6. Levothyroxine 50 mcg daily. 7. Metolazone 10 mg b.i.d. PHYSICAL EXAMINATION: General: He is awake, alert, oriented. Vital Signs: Blood pressure of 131/70, heart rate of 71, O2 sat of 94% on room air. HEENT: Anicteric sclerae. Normocephalic. Neck: Supple. JVD. Chest and Lungs: Decreased breath sounds bilaterally. Cardiac: No rub, no murmur. Abdomen: Distended with abdominal wall edema. Extremities: 2+ pitting edema. LABORATORY DATA: Hemoglobin 9.2, WBC 7200, platelet count 129,000. Sodium 142, potassium 3.9, chloride 105, CO2 of 24.3, BUN 59, creatinine 8.1, calcium 7.2, phosphorus 8.2. ASSESSMENT: 1. Progressively worsening kidney function in the setting of advanced chronic kidney disease. 2. 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 3. Morbid obesity. 4. Heart failure with reduced ejection fraction of 35-40%. 5. Anasarca secondary to congestive heart failure. 6. History of cocaine abuse. 7. Type 2 [id number] myocardial infarction secondary to demand ischemia. 8. Anemia of chronic kidney disease. PLAN: I have discussed with him that at this point he will need to be on dialysis given that he continues to be short of breath and also swollen despite maximum dose of bumetanide. Patient agreed to undergo permanent hemodialysis. As such, I will refer him to IR for tunneled dialysis catheter placement. TB skin test was already done yesterday. I will obtain acute hepatitis profile. I will increase his calcium acetate to 2001 mg t.i.d. with meals or 3 tabs t.i.d. with meals to address his hyperphosphatemia and secondary hyperparathyroidism. Dialysis will be provided 3 days in a row in incremental doses. After the 3 consecutive dialysis treatments, then patient will need to be referred to the [facility] for chronic dialysis treatments. Risks were also discussed with him, namely hypotension, infection, bleeding, and he seems to understand. Dialysis will begin as soon as we have a dialysis catheter in place. DT: 13:59:04 TT: 14:50:00 Ref: [id number] - TID: [id number]
[2025-07-15] MEDS: HEPARIN SOD LOCK SYR 100 UNIT/ML 500 UNIT IV (15:06)
[2025-07-15] MEDS: LIDOCAINE INJ PF 1% 30 ML VIAL 7 ML EPID (15:10)
[2025-07-15] MEDS: LIDOCAINE INJ PF 1% 30 ML VIAL EPID (15:10)
[2025-07-15] MEDS: HEPARIN SOD INJ 1000 UNIT/ML VIAL 3500 UNIT INDWELLCAT (15:40)
--- NOTE | 2025-07-15 16:49 | PC.NURSE ---
hand off report given to glory gandhi. glory and I assessed site and dressing. dressing is clean, dry and intact. site is soft, flat, nontender and no sign of hematoma. patient alert and oriented x 4 gcs of 15
--- NOTE | 2025-07-15 18:11 | PC.NURSE ---
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 WILL RESTRING MACHINE AND ATTEMPT TO RESUME TX TOLERATED. .
--- NOTE | 2025-07-15 18:15 | PC.NURSE ---
TX RESUMED W/O COMPLICATION. PT REMAINS ASYMPTOMATIC, UF INCREASED TO ACCOUNT FOR FLUID ADMINISTERED IN RESTRINGING THE DIALYSIS MACHINE TOLERATED WILL CONT. TO MONITOR
[2025-07-15] MEDS: HEPARIN SOD INJ 1000 UNIT/ML VIAL 10 ML 3500 UNIT INDWELLCAT (18:44)
[2025-07-15] MEDS: HYDROcodone/APAP 5/325 TABLET 1 TAB PO (21:39)
[2025-07-16] VITALS (34 sets, daily range): BP systolic 95–162; BP diastolic 73–106; PULSE 62–678; RESP 18–20; TEMP 36.2–37.1; O2SAT 93–97
[2025-07-16] MEDS: LEVOTHYROXINE SODIUM 25 MCG TABLET 75 MCG PO (05:47)
[2025-07-16] MEDS: CALCIUM ACETATE 667 MG TABLET 1334 MG PO ×3 (07:36→17:05)
[2025-07-16 08:32] LABS: Basophils # (Auto) 0.0 Thou/mm3 (0.0-0.2); Basophils % (Auto) 0 % (0-2.5); Eosinophils # (Auto) 0.1 Thou/mm3 (0.0-0.5); Eosinophils % (Auto) 2 % (0-10); Hematocrit 29.7 % (41.0-53.0); Hemoglobin 9.0 g/dL (13.5-16.0); Immature Granulocytes Auto 0.01 Thou/mm3 (0.00-0.00); Lymphocytes # (Auto) 0.7 Thou/mm3 (1.0-4.8); Lymphocytes % (Auto) 13 % (10-50); Mean Corpuscular HGB Conc 30.3 g/dl (31.0-37.0); Mean Corpuscular Hemoglobin 28.0 pg (25.0-35.0); Mean Corpuscular Volume 93 fL (80-100); Monocytes # (Auto) 0.5 Thou/mm3 (0.0-0.8); Monocytes % (Auto) 9 % (0-12); Neutrophils # (Auto) 4.4 Thou/mm3 (1.8-7.7); Neutrophils % (Auto) 76 % (37-80); Nucleated Red Blood Cell # 0.00 Thou/mm3 (0.00-0.00); Nucleated Red Blood Cell % 0 /100 WBC (0); Platelet Count 147 Thou/mm3 (140-440); RDW Standard Deviation 51.7 fL (35.1-43.9); Red Blood Count 3.21 Miln/mm3 (4.50-5.90); White Blood Count 5.8 Thou/mm3 (3.8-10.6)
[2025-07-16 08:53] LABS: Alanine Aminotransferase < 7 U/L (10-49); Albumin, Serum 3.7 gm/dL (3.5-5.0); Albumin/Globulin Ratio 1.5 (1.2-2.2); Alkaline Phosphatase 71 U/L (46-116); Anion Gap 11 (7-16); Aspartate Amino Transferase < 10 U/L (0-34); BUN/Creatinine Ratio 7 Ratio (12-20); Bilirubin,Total 0.4 mg/dL (0.3-1.2); Blood Urea Nitrogen 49 mg/dL (9-23); Calcium 7.4 mg/dL (8.3-10.6); Calcium (Corrected) 7.6 mg/dL (8.5-10.1); Carbon Dioxide 25.0 mMol/L (20.0-31.0); Chloride 104 mMol/L (98-107); Creatinine (Component) 7.2 mg/dL (0.6-1.3); Estimated Creatinine Clearance 20.9 mL/min (>60); Globulin 2.5 gm/dL (2.3-3.5); Glucose 94 mg/dL (74-106); Osmolality,Calculated 292 (275-295); Potassium 3.7 mMol/L (3.4-5.1); Sodium 140 mMol/L (136-145); Total Protein 6.2 gm/dL (5.7-8.2); eGFR 9 See Note
[2025-07-16] MEDS: HEPARIN SOD INJ 1000 UNIT/ML VIAL 10 ML 1500 UNIT INDWELLCAT (09:01)
--- NOTE | 2025-07-16 10:07 | PC.SS ---
follow up note: SS spoke to staff at [facility] on [address] and they provided an out patient dialysis chair time. Patient's schedule is M/W/F @ 4:30a.m. starting this Tuesday, the . Physician team updated. Poss d/c Tuesday.
[2025-07-16] MEDS: HEPARIN SOD INJ 1000 UNIT/ML VIAL 10 ML 3500 UNIT INDWELLCAT (11:25)
[2025-07-16] MEDS: PANTOPRAZOLE 40 MG TABLET PO (11:46)
--- NOTE | 2025-07-16 13:30 | ESPR_ITS ---
<Statement entered by Lorenza Veras MD - 07/16/25 17:11> Patient is seen at bedside. Currently saturating well on 3 L oxygen via nasal cannula continues to have significant edema in lower extremity. Patient underwent his first session of dialysis yesterday and approximately 2 L of fluid was removed. Patient has another dialysis session scheduled for today for additional fluid removal. Patient has tolerated dialysis well. Patient is able to get out of bed and mobilize and go to the bathroom without difficulty. Patient states he does feel better after dialysis session. Patient's outpatient dialysis chair has been approved plan is to undergo dialysis on Tuesday and anticipate discharge and patient will follow-up with outpatient dialysis on Tuesday. Patient is also recommended to undergo sleep study outpatient. Patient was seen and examined by me personally. I have directly supervised and reviewed documentation by the team resident and agree with its findings. ------- Plan of care was discussed with the attending, Dr. Arleen Veras, PGY-2 Documentation for date of: 07/16/25 Subjective Subjective Interval history: Patient seen and examined at bedside. Patient had 2 dialysis sessions in the past 24 hours for total fluid output of 3.2 L. Nephrology increased calcium supplementation to 2 g TID. He will need outpatient dialysis upon discharge. Levothyroxine increased from 50mcg to 75mcg. Exam Vital Signs Temp Pulse Resp BP Pulse Ox O2 Del Method O2 Flow Rate 97.6 F 68 20 131/87 H 93 L Nasal Cannula 3 07/16/25 11:46 07/16/25 12:00 07/16/25 11:46 07/16/25 11:47 07/16/25 11:46 07/16/25 11:46 07/16/25 11:46 FiO2 40 07/16/25 08:00 Narrative Exam General: Obese man, diffuse anasarca. Awake and in no acute distress. Conversational and non-toxic appearing. Neurologic: GCS 15. Alert and oriented x3, no gross neurological deficit, and patient able to move all 4 extremities. HEENT: Normocephalic, atraumatic, mucous membranes moist. Pupils reactive to light. Heart: Regular rate and rhythm, normal S1 and S2, no murmurs. Lungs: Clear to auscultation bilaterally with no wheezing or crackles. Abdomen: Obese, pitting edema diffusely in the bilateral lower quadrants. No guarding or rebound tenderness. Extremities: Bilateral lower extremity pitting edema up to the hips. 2+ radial and dorsalis pedis pulses bilaterally. Skin: Warm. Dry. No rash or ecchymoses. Objective Labs 07/17/25 05:02 07/17/25 05:02 Labs: Laboratory Results - last 24 hr 07/16/25 08:18 WBC 5.8 RBC 3.21 L Hgb 9.0 L Hct 29.7 L MCV 93 MCH 28.0 MCHC 30.3 L RDW Std Deviation 51.7 H Plt Count 147 Neut % (Auto) 76 Lymph % (Auto) 13 Sawyer % (Auto) 9 Eos % (Auto) 2 Baso % (Auto) 0 Neut # (Auto) 4.4 Lymph # (Auto) 0.7 L Sawyer # (Auto) 0.5 Eos # (Auto) 0.1 Baso # (Auto) 0.0 Immature Gran # (Auto) 0.01 H Absolute Nucleated RBC 0.00 Immature Gran % 0 Nucleated RBC % 0 Sodium 140 Potassium 3.7 Chloride 104 Carbon Dioxide 25.0 Anion Gap 11 BUN 49 H Creatinine 7.2 H* D Estim Creat Clear Calc 20.9 L eGFR 9 L* BUN/Creatinine Ratio 7 L Glucose 94 Calculated Osmolality 292 Calcium 7.4 L Corrected Calcium 7.6 L Total Bilirubin 0.4 AST < 10 ALT < 7 L Alkaline Phosphatase 71 Total Protein 6.2 Albumin 3.7 Globulin 2.5 Albumin/Globulin Ratio 1.5 Quality Measures Quality Measures none Assessment & Plan Assessment Current Active Medications: Generic Name Dose Route Start Last Admin Trade Name Ryneq PRN Reason Stop Dose Admin Acetaminophen 650 mg 07/12/25 18:13 Acetaminophen 325 Mg Tablet PO 08/11/25 18:12 Q6H PRN Fever >101.5 Acetaminophen 650 mg 07/12/25 18:13 Acetaminophen 325 Mg Tablet PO 08/11/25 18:12 Q6H PRN PAIN SCALE 1-3 (mild Hydrocodone Bitart/Acetaminophen 1 tab 07/12/25 18:13 07/15/25 21:39 Hydrocodone/Apap 5/325 Tablet PO 07/17/25 18:12 1 tab Q4HR PRN Administration PAIN SCALE 4-6 (Moderate Calcium Acetate 1,334 mg 07/13/25 17:30 07/16/25 11:50 Calcium Acetate 667 Mg Tablet PO 12/01/25 17:29 1,334 mg TIDWM HOLLIS Administration Carvedilol 25 mg 07/14/25 17:30 07/16/25 11:47 Carvedilol 12.5 Mg Tablet PO 08/13/25 17:29 25 mg BIDWM HOLLIS Administration Heparin Sodium (Porcine) 3,500 unit 07/15/25 17:12 07/16/25 11:25 Heparin Sod Inj 1000 Unit/Ml Vial 10 Ml INDWELLCAT 07/29/25 17:11 3,500 unit PRN PRN Administration DIALYSIS Hydralazine HCl 50 mg 07/14/25 14:00 07/16/25 05:47 Hydralazine Hcl 25 Mg Tablet PO 08/11/25 13:59 Not Given TID HOLLIS Albumin Human 25 gm in 100 mls @ 100 mls/min 07/15/25 16:49 Albuminex 25% Ivpb IV Q30MIN PRN DIALYSIS Labetalol HCl 10 mg 07/12/25 19:44 07/12/25 20:11 Labetalol Inj 5 Mg/Ml Vial 20 Ml IVP 08/11/25 19:43 10 mg Q4H PRN Administration SBP > 180 Levothyroxine Sodium 75 mcg 07/16/25 06:00 07/16/25 05:47 Levothyroxine Sodium 25 Mcg Tablet PO 08/15/25 05:59 75 mcg ACBR HOLLIS Administration Metolazone 10 mg 07/13/25 21:00 07/16/25 11:38 Metolazone 2.5 Mg Tablet PO 08/12/25 20:59 Not Given BID HOLLIS Pantoprazole Sodium 40 mg 07/16/25 09:00 07/16/25 11:46 Pantoprazole 40 Mg Tablet PO 08/15/25 08:59 40 mg QDAY HOLLIS Administration Protocol Plan Summary: Patient is a 40 yo M with PMH of ESRD, hypothyroidism, HTN, gout, morbid obesity presenting to ED with fluid overload and shortness of breath; patient admitted on 07/12/25 for anasarca. #Anasarca secondary to #Possible CKD progressing to ESRD and #Hyperphosphatemia Patient has 4+ edema bilaterally to above knee and significant abdominal distention. Admission creatinine 7.0, corrected calcium 6.8, troponin 0.146, BNP 746. CXR showed mild heart failure. Renal u/s- no visualization due to body habitus. Patient mentioned that he takes hydrochlorothiazide at home but has not been taking it over the last month or 2 because he ran out. He said that he normally weighs around 300 pounds but the day prior to admission he weighed about 350 pounds. Patient's peripheral pitting edema has not improved. 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 Chest x-ray 07/14/25 showed bilateral opacities. Doppler ultrasound bilateral LE negative for DVT Plan: Patient is planned to undergo 3 sessions of dialysis during his hospital stay, has completed 2 Continue metolazone 10 mg BID Strict I&O, Daily weight, 1000ml restriction #Pulmonary Hypertension Consider in the prescence of long-standing fluid overload and HTN Patient has not taken his hydrochlorothiazide for over a month prior to admission Estimated RVSP is 44 mmHg on echo Consider Group 1 pulmonary Hypertension due to previous cocaine use Consider Group 2 pulmonary Hypertension due to LV systolic dysfunction with HFrEF EF 35-40% Plan: Will treat the most likely underlying cause, long-standing fluid overload leading to systolic dysfunction, with dialysis #HFrEF Echocardiogram showed an EF of about 35-40%, mild concentric hypertrophy of the left ventricle, and right ventricular systolic pressure 44 mmHg Plan: Carvedilol 25 mg p.o. twice daily Dialysis as above Patient makes good urine, continue diuresing with metolazone 10 mg twice daily #HTN BP on admission- 172/102 Difficult to determine if elevated creatinine qualifies for HTN emergency, however this elevation is more likely due to CKD instead of HTN leading to kidney damage Plan: Continue Hydralazine 50 TID, parameter to hold for SBP less than 130 Continue carvedilol 25 BID Labetalol 10 q4h for SBP > 180 #Hypocalcemia Consider secondary hyperparathyroidism in the presence of CKD: Vitamin D is unable to be converted into its active form leading to reduced calcium absorption from the gut. EKG showed a QT interval of over 500 likely secondary to hypocalcemia. Also consider in the presence of dieresis Plan: Calcium acetate 2 g TID with meals #Hypothyroidism On levothyroxine 50 at home TSH: 5.14 Free T3: 2.2 Plan: Increased levothyroxine from 50 mcg to 75 mcg #Normocytic anemia Hemoglobin is 9 down from 10.3 on admission Hemoglobin is usually expected to rise during diuresis, however has decreased for the patient. Patient has no obvious active bleeding. Plan: Will continue to monitor with daily CBC and transfuse if hemoglobin goes below 7. #History of Gout On allopurinol at home Plan: Hold for now Disposition: Tunneled dialysis catheter placed successfully and patient underwent 2 sessions of dialysis. Will plan for 1 more dialysis session. He is tolerating dialysis well. DVT prophylaxis: Subcu heparin 5000 Q 12 Diet: Renal Lines: Peripheral IV, right IJ tunneled dialysis catheter CODE STATUS: Full Patient was seen and discussed with my attending physician Dr. Arleen GARCIA and my senior resident Dr. Rito MONTES PGY-2. Daniele Hoffman DO PGY-1. Attending Provider Attestation/Addendum I, Erma Bacon DO, attest that I was physically present for the borrero portions of the service and evaluated the patient with the resident and I reviewed and discussed the case with the resident and agree with the resident's findings and plans of care as documented above Patient seen and eval this a.m. He states that he is feeling well. Mother is at bedside. Bilateral lower extremity edema appears much improved, but it remains 2-3+ pitting. Patient states he has been tolerating dialysis well. He reports mild fatigue during the process of dialysis. Otherwise he has no acute complaints at this time. He remains on 4 L nasal cannula. Will continue to titrate O2 as tolerated. Anticipate discharge within the next 24 hours as patient will undergo his last session of dialysis tomorrow and has scheduled chair time outpatient.
--- NOTE | 2025-07-16 22:01 | ESPR_ITS ---
RE: JOSLYN SALAZAR : 1985 DATE OF SERVICE: 07/16/2025 HISTORY OF PRESENT ILLNESS: This patient is a 40-year-old -Cyp[place] gentleman with longstanding hypertension, morbid obesity, and stage IV CKD at least since 04/2023, who presented to the emergency room on 07/12/2025 after he was told by his primary care to go to the emergency room due to increasing shortness of breath and leg swelling. The patient has been swollen and short of breath for 2 weeks prior to seeing his primary care physician. He was very edematous when he presented to ED. He was also hypoxic. He was admitted and was seen by me. The patient initially was started on high-dose Lasix and converted it to Bumex drip. Though he had a lot of urine output, he continues to be very swollen and short of breath. His creatinine initially was 7, which continued to rise on diuretics. The patient started on dialysis yesterday and is being continued on dialysis today. Currently on dialysis and tolerating it very well. The patient was also found with ejection fraction of 35-40% and left ventricular size, which is mildly enlarged. CURRENT MEDICATIONS: 1. Acetaminophen. 2. Calcium acetate 1334 mg p.o. t.i.d. with meals. 3. Hydralazine. 4. Influenza. 5. Metolazone 10 mg b.i.d. 6. Sevelamer 800 mg p.o. x1. PHYSICAL EXAMINATION: General: He is awake, alert, oriented. Vital Signs: Blood pressure of 136/74, heart rate of 66. HEENT: Anicteric sclerae. Normocephalic. Neck: Supple. No JVD. Chest and Lungs: Symmetric expansion. Clear breath sounds. Cardiac: Without murmur. Abdomen: Soft and nontender. Extremities: 2+ bilateral pitting edema. LABORATORY DATA: Hemoglobin 9, WBC 5800, platelet count 147,000. Sodium 140, potassium 3.7, chloride 104, CO2 25, BUN 49, creatinine 7.2, calcium 7.6. ASSESSMENT: 1. End-stage renal disease secondary to hypertension. 2. Morbid obesity. 3. Heart failure with reduced ejection fraction of 35-40%. 4. Anasarca secondary to congestive heart failure. 5. History of cocaine abuse. 6. Type 2 [id number] myocardial infarction secondary to demand ischemia. 7. Anemia of chronic kidney disease. PLAN: The patient is currently on dialysis and tolerating it very well. Next dialysis will be tomorrow. He got his tunneled dialysis catheter yesterday with good flow. If the patient continues to improve, then the patient can be discharged anytime after dialysis tomorrow. DT: 21:47:43 TT: 21:59:00 Ref: [id number] - TID: [id number] MTDD
[2025-07-16] MEDS: HYDROcodone/APAP 5/325 TABLET 1 TAB PO (23:46)
[2025-07-17] VITALS (29 sets, daily range): BP systolic 122–168; BP diastolic 77–112; PULSE 53–71; RESP 17–28; TEMP 36.2–36.7; O2SAT 89–100
[2025-07-17] MEDS: LEVOTHYROXINE SODIUM 25 MCG TABLET 75 MCG PO (05:27)
[2025-07-17 06:20] LABS: Basophils # (Auto) 0.0 Thou/mm3 (0.0-0.2); Basophils % (Auto) 0 % (0-2.5); Eosinophils # (Auto) 0.1 Thou/mm3 (0.0-0.5); Eosinophils % (Auto) 3 % (0-10); Hematocrit 26.6 % (41.0-53.0); Immature Granulocytes Auto 0.01 Thou/mm3 (0.00-0.00); Lymphocytes # (Auto) 0.8 Thou/mm3 (1.0-4.8); Lymphocytes % (Auto) 14 % (10-50); Mean Corpuscular HGB Conc 31.2 g/dl (31.0-37.0); Mean Corpuscular Hemoglobin 28.6 pg (25.0-35.0); Mean Corpuscular Volume 92 fL (80-100); Monocytes # (Auto) 0.6 Thou/mm3 (0.0-0.8); Monocytes % (Auto) 12 % (0-12); Neutrophils # (Auto) 4.0 Thou/mm3 (1.8-7.7); Neutrophils % (Auto) 71 % (37-80); Nucleated Red Blood Cell # 0.00 Thou/mm3 (0.00-0.00); Nucleated Red Blood Cell % 0 /100 WBC (0); Platelet Count 137 Thou/mm3 (140-440); RDW Standard Deviation 50.5 fL (35.1-43.9); Red Blood Count 2.90 Miln/mm3 (4.50-5.90); White Blood Count 5.6 Thou/mm3 (3.8-10.6)
[2025-07-17 06:42] LABS: Alanine Aminotransferase < 7 U/L (10-49); Albumin, Serum 3.5 gm/dL (3.5-5.0); Albumin/Globulin Ratio 1.8 (1.2-2.2); Alkaline Phosphatase 58 U/L (46-116); Anion Gap 10 (7-16); Aspartate Amino Transferase 10 U/L (0-34); BUN/Creatinine Ratio 8 Ratio (12-20); Bilirubin,Total 0.3 mg/dL (0.3-1.2); Blood Urea Nitrogen 45 mg/dL (9-23); Calcium 7.3 mg/dL (8.3-10.6); Calcium (Corrected) 7.7 mg/dL (8.5-10.1); Carbon Dioxide 27.8 mMol/L (20.0-31.0); Chloride 102 mMol/L (98-107); Creatinine (Component) 5.5 mg/dL (0.6-1.3); Estimated Creatinine Clearance 27.0 mL/min (>60); Globulin 1.9 gm/dL (2.3-3.5); Glucose 97 mg/dL (74-106); Magnesium 1.7 mg/dL (1.6-2.6); Osmolality,Calculated 290 (275-295); Phosphorous 5.0 mg/dL (2.4-5.1); Potassium 3.5 mMol/L (3.4-5.1); Sodium 140 mMol/L (136-145); Total Protein 5.4 gm/dL (5.7-8.2); eGFR 13 See Note
[2025-07-17 07:18] LABS: Hemoglobin 8.3 g/dL (13.5-16.0)
[2025-07-17] MEDS: PANTOPRAZOLE 40 MG TABLET PO (08:08)
[2025-07-17] MEDS: CALCIUM ACETATE 667 MG TABLET 1334 MG PO ×3 (08:08→17:33)
[2025-07-17] MEDS: EPOETIN ALFA-EPBX INJ 10,000 UNIT/ML VIAL (NON-ESRD) 10000 UNIT IV (09:42)
[2025-07-17] MEDS: HEPARIN SOD INJ 1000 UNIT/ML VIAL 10 ML 3500 UNIT INDWELLCAT (11:02)
--- NOTE | 2025-07-17 12:32 | PC.SS ---
Follow up note: Floor nurse was made aware to test patient for 02 sats. Patient may need new home 02.
--- NOTE | 2025-07-17 12:41 | PC.NURSE ---
O2 portability test: room air spo2% at rest- 85%, Room air spo2% with exercise 82%, recovery test: spo2% on o2 with exercise, 92%, oxygen 2% with nasal cannula
--- NOTE | 2025-07-17 13:40 | PC.SS ---
Patient needs new home 02 as patient was tested at 85% on room air at rest
--- NOTE | 2025-07-17 14:42 | PC.SS ---
follow up note: SS submitted order and verifications to [employer] for review and auth/delivery. Pending authorization for new 02
--- NOTE | 2025-07-17 15:58 | ESDS_ITS ---
<Statement entered by Erma Bacon DO - 07/18/25 07:30> I, Erma Bacon DO, attest that I was physically present for the borrero portions of the service and evaluated the patient with the resident and I reviewed and discussed the case with the resident and agree with the resident's findings and plans of care as documented above Planned Discharge Date 07/17/25 DS: Providers Provider Date of admission: 07/12/25 18:14 Primary care physician: Guerda Mccoy MD Admitting Provider: Erma Bacon DO Attending Provider on Admission: Erma Bacon DO Consults: 07/12/25 17:20 Consult to Nephrology Stat Comment: ROBERTO CARLOS Consulting Provider: Venus Nunez 07/12/25 17:52 Consult to Cardiology Stat Comment: Consulting Provider: Francheska Dunne 07/14/25 09:50 Referral Physical Therapy Routine Comment: Physician Instructions: Attending Provider on DC: Erma Bacon DO Discharging Provider: Daniele Hoffman DO DS: Diagnosis Discharge Diagnosis (1) CHF (congestive heart failure): Status: Acute (2) ESRD (end stage renal disease): Status: Acute Problem List Completed Was Problem List Reviewed/Reconciled?: Yes Hospital Course Hospital Course Hospital course: Hospital Course: Patient is a 40 yo M with PMH of ESRD, hypothyroidism, HTN, gout, morbid obesity who presented to ED on 07/12/2025 with fluid overload and shortness of breath. She was admitted for management. The patient underwent aggressive diuresis with Bumex and metolazone. She continued to have shortness of breath, requiring OxyMask and BiPAP over the first 2 days of his hospital stay despite diuresis. He was severely hypocalcemic and received multiple doses of IV calcium and was started on 3 times daily calcium. Patient had a mild elevation in his troponin that downtrended. There was no acute ST segment changes on EKG, likely representing a type II NSTEMI. Patient had an echo that demonstrated an ejection fraction of 35-40%. He was treated for his heart failure and hypertension with Coreg and hydralazine. For his hypothyroidism, the patient was found to have a slightly elevated TSH and slightly low free T3. His home levothyroxine dose was titrated from 50 mcg to 75 mcg daily. Patient had a tunneled dialysis catheter inserted underwent 3 sessions of dialysis during his hospital stay, he tolerated the dialysis sessions well and approximately 8 L of fluid were removed over the 3 sessions. His respiratory status improved to the point where he was on 1 L nasal cannula and saturating well at 96%. Patient will be discharged and will continue dialysis outpatient starting on 07/19/2025. He will also be discharged on home oxygen. Problem List: #Anasarca secondary to #Possible CKD progressing to ESRD and #Hyperphosphatemia #Pulmonary Hypertension #HFrEF #HTN #Hypocalcemia #Hypothyroidism #Normocytic anemia #History of Gout Discharge Instructions: -Follow up with PCP within 1 week of discharge, if you do not have a primary care physician you can come see us at the [facility] by calling [phone] -Please follow up with Hose Stripper Dr. Nunez outpatient -Please follow up outpatient with Optical Technician outpatient -Please take all your medications as prescribed -Return to the ED or call EMS if symptoms return and/or worsen The patient was seen and discussed with my attending physician Dr. Bacon and my senior resident Dr. Rito MONTES PGY-2. Daniele Hoffman DO PGY-1 Time Spent with Patient Time attestation: Total time spent providing and/or coordinating discharge services: More than 50% Time spent: Greater than 30 minutes Exam Vital Signs Temp Pulse Resp BP Pulse Ox O2 Del Method O2 Flow Rate 97.2 F 67 20 166/107 H 96 Nasal Cannula 2 07/17/25 12:00 07/17/25 14:49 07/17/25 12:00 07/17/25 14:49 07/17/25 12:00 07/17/25 12:00 07/17/25 12:00 FiO2 40 07/17/25 11:30 Narrative Exam General: Obese man. Awake and in no acute distress. Conversational and non- toxic appearing. Neurologic: GCS 15. Alert and oriented x3, no gross neurological deficit, and patient able to move all 4 extremities. HEENT: Normocephalic, atraumatic, mucous membranes moist. Pupils reactive to light. Heart: Regular rate and rhythm, normal S1 and S2, no murmurs. Lungs: Clear to auscultation bilaterally with no wheezing or crackles. Abdomen: Obese. No guarding or rebound tenderness. Extremities: Bilateral 3+ lower extremity pitting edema up to the hips. 2+ r adial and dorsalis pedis pulses bilaterally. Skin: Warm. Dry. No rash or ecchymoses. Discharge Plan Plan Patient Disposition: HOME (Self Care) Disposition Comment: with Home O2 Patient condition on transfer: Stable Care Plan Goals: -Follow up with PCP within 1 week of discharge, if you do not have a primary care physician you can come see us at the [facility] by calling [phone] -Please follow up with Hose Stripper Dr. Nunez outpatient -Please follow up outpatient with Optical Technician outpatient -Please take all your medications as prescribed -Return to the ED or call EMS if symptoms return and/or worsen Prescriptions/Referrals Prescriptions/Med Rec: New calcium acetate(phosphat bind) 667 mg Capsule 1,334 mg PO TIDWM 30 Days Qty: 60 0RF levothyroxine 75 mcg capsule 75 mcg PO ACBR 30 Days Qty: 30 0RF furosemide 80 mg tablet 80 mg PO QDAY Qty: 30 0RF carvedilol 25 mg tablet 25 mg PO BIDWM 30 Days Qty: 60 0RF Continued hydralazine 50 mg tablet 50 mg PO TID ergocalciferol (vitamin D2) 1,250 mcg (50,000 unit) capsule 1,250 mcg PO .week Patient Comments: take 1 capsule by mouth every week Discontinued furosemide 40 mg tablet 40 mg PO DAILY amlodipine 10 mg tablet 10 mg PO DAILY lisinopril 5 mg tablet 5 mg PO DAILY levothyroxine 50 mcg tablet 50 mcg PO .AM dapagliflozin propanediol [Farxiga] 10 mg tablet 10 mg PO DAILY Patient Comments: TAKE 1 TABLET BY MOUTH EVERY DAY clonidine 0.2 mg/24 hr patch weekly 0.2 mg TOPICAL .week Patient Comments: APPLY 1 PATCH TOPICALLY EVERY WEEK allopurinol 300 mg tablet 300 mg PO .am Patient Comments: take 1 tablet by mouth every morning calcitriol 0.25 mcg capsule 0.25 mcg PO HS Patient Comments: take 1 capsule by mouth nightly terazosin 5 mg capsule 5 mg PO HS Patient Comments: take 1 capsule by mouth nightly hydrochlorothiazide 12.5 mg tablet 12.5 mg PO .am Patient Comments: TAKE 1 TABLET BY MOUTH EVERY DAY IN THE MORNING Referrals: Guerda Mccoy MD [Primary Care Provider] Patient/Caregiver Discharge Instructions Other Discharge Activity Instructions:: Follow up at [facility] out patient schedule: M/W/F @ 4:30a.m. Starting on Tuesday, the 19 of July at 4:30a.m. #[phone] Print Language: Maltese Stand Alone Forms: Arpita Award Info., Patient Portal Info Letter Discharge Order Discharge Orders: Discharge (Routine); Ordered 07/17/25 Ordered By: Lorenza Veras Quality Discharge Quality Measures none
--- NOTE | 2025-07-17 18:31 | PC.NURSE ---
at 1820, pt educated on renal diet and fluid restriction with patient understanding
[2025-07-17] MEDS: HYDROcodone/APAP 5/325 TABLET 1 TAB PO (21:18)
[2025-07-18] VITALS (26 sets, daily range): BP systolic 131–164; BP diastolic 81–117; PULSE 60–81; RESP 17–20; TEMP 36.2–37.7; O2SAT 91–99; BMI 47.8
[2025-07-18] MEDS: LEVOTHYROXINE SODIUM 25 MCG TABLET 75 MCG PO (05:04)
[2025-07-18 06:16] LABS: Basophils # (Auto) 0.0 Thou/mm3 (0.0-0.2); Basophils % (Auto) 0 % (0-2.5); Eosinophils # (Auto) 0.2 Thou/mm3 (0.0-0.5); Eosinophils % (Auto) 4 % (0-10); Hematocrit 29.0 % (41.0-53.0); Hemoglobin 9.0 g/dL (13.5-16.0); Immature Granulocytes Auto 0.01 Thou/mm3 (0.00-0.00); Lymphocytes # (Auto) 0.8 Thou/mm3 (1.0-4.8); Lymphocytes % (Auto) 17 % (10-50); Mean Corpuscular HGB Conc 31.0 g/dl (31.0-37.0); Mean Corpuscular Hemoglobin 28.5 pg (25.0-35.0); Mean Corpuscular Volume 92 fL (80-100); Monocytes # (Auto) 0.7 Thou/mm3 (0.0-0.8); Monocytes % (Auto) 14 % (0-12); Neutrophils # (Auto) 2.9 Thou/mm3 (1.8-7.7); Neutrophils % (Auto) 64 % (37-80); Nucleated Red Blood Cell # 0.00 Thou/mm3 (0.00-0.00); Nucleated Red Blood Cell % 0 /100 WBC (0); Platelet Count 123 Thou/mm3 (140-440); RDW Standard Deviation 51.3 fL (35.1-43.9); Red Blood Count 3.16 Miln/mm3 (4.50-5.90); White Blood Count 4.5 Thou/mm3 (3.8-10.6)
[2025-07-18 06:50] LABS: Alanine Aminotransferase < 7 U/L (10-49); Albumin, Serum 3.6 gm/dL (3.5-5.0); Albumin/Globulin Ratio 1.6 (1.2-2.2); Alkaline Phosphatase 61 U/L (46-116); Anion Gap 9 (7-16); Aspartate Amino Transferase < 10 U/L (0-34); BUN/Creatinine Ratio 7 Ratio (12-20); Bilirubin,Total 0.3 mg/dL (0.3-1.2); Blood Urea Nitrogen 35 mg/dL (9-23); Calcium 8.1 mg/dL (8.3-10.6); Calcium (Corrected) 8.4 mg/dL (8.5-10.1); Carbon Dioxide 28.6 mMol/L (20.0-31.0); Chloride 102 mMol/L (98-107); Creatinine (Component) 5.2 mg/dL (0.6-1.3); Estimated Creatinine Clearance 28.6 mL/min (>60); Globulin 2.2 gm/dL (2.3-3.5); Glucose 105 mg/dL (74-106); Magnesium 1.9 mg/dL (1.6-2.6); Osmolality,Calculated 287 (275-295); Phosphorous 4.3 mg/dL (2.4-5.1); Potassium 3.8 mMol/L (3.4-5.1); Sodium 140 mMol/L (136-145); Total Protein 5.8 gm/dL (5.7-8.2); eGFR 14 See Note
--- NOTE | 2025-07-18 08:58 | ESDS_ITS ---
<Statement entered by Erma Bacon DO - 07/19/25 07:31> I, Erma Bacon DO, attest that I was physically present for the borrero portions of the service and evaluated the patient with the resident and I reviewed and discussed the case with the resident and agree with the resident's findings and plans of care as documented above Planned Discharge Date 07/18/25 DS: Providers Provider Date of admission: 07/12/25 18:14 Primary care physician: Guerda Mccoy MD Admitting Provider: Erma Bacon DO Attending Provider on Admission: Erma Bacon DO Consults: 07/12/25 17:20 Consult to Nephrology Stat Comment: ROBERTO CARLOS Consulting Provider: Venus Nunez 07/12/25 17:52 Consult to Cardiology Stat Comment: Consulting Provider: Francheska Dunne 07/14/25 09:50 Referral Physical Therapy Routine Comment: Physician Instructions: Attending Provider on DC: Erma Bacon DO Discharging Provider: Daniele Hoffman DO DS: Diagnosis Discharge Diagnosis (1) CHF (congestive heart failure): Status: Acute (2) ESRD (end stage renal disease): Status: Acute Problem List Completed Was Problem List Reviewed/Reconciled?: Yes Hospital Course Hospital Course Hospital course: Patient was cleared to discharge yesterday 07/17/2025. He spent 1 more night in the hospital awaiting his home oxygen. Hospital Course: Patient is a 40 yo M with PMH of ESRD, hypothyroidism, HTN, gout, morbid obesity who presented to ED on 07/12/2025 with fluid overload and shortness of breath. She was admitted for management. The patient underwent aggressive diuresis with Bumex and metolazone. She continued to have shortness of breath, requiring OxyMask and BiPAP over the first 2 days of his hospital stay despite diuresis. He was severely hypocalcemic and received multiple doses of IV calcium and was started on 3 times daily calcium. Patient had a mild elevation in his troponin that downtrended. There was no acute ST segment changes on EKG, likely representing a type II NSTEMI. Patient had an echo that demonstrated an ejection fraction of 35-40%. He was treated for his heart failure and hypertension with Coreg and hydralazine. For his hypothyroidism, the patient was found to have a slightly elevated TSH and slightly low free T3. His home levothyroxine dose was titrated from 50 mcg to 75 mcg daily. Patient had a tunneled dialysis catheter inserted underwent 3 sessions of dialysis during his hospital stay, he tolerated the dialysis sessions well and approximately 8 L of fluid were removed over the 3 sessions. His respiratory status improved to the point where he was on 1 L nasal cannula and saturating well at 96% however on room air pt desats to 85%- 86%. Therefore Pt is discharged home with home oxygen, pt is also recommended to get sleep study done outpatient. Patient will be discharged and will continue dialysis outpatient starting on 07/19/2025. He will also be discharged on home oxygen. Problem List: #Anasarca secondary to #CKD progressing to ESRD and #Hyperphosphatemia #Pulmonary Hypertension #HFrEF #HTN #Hypocalcemia #Hypothyroidism #Normocytic anemia #History of Gout Discharge Instructions: -Follow up with PCP within 1 week of discharge, if you do not have a primary care physician you can come see us at the [facility] by calling [phone] -Please follow up with [employer] Dr. Nunez outpatient -Out patient dialysis chair time. Patient's schedule is M/W/F @ 4:30a.m. starting this Tuesday07/19/2025. -Please follow up outpatient with [facility] outpatient -You need to need get sleep study done, so please obtain referral from your primarycare -Please take all your medications as prescribed -Return to the ED or call EMS if symptoms return and/or worsen The patient was seen and discussed with my attending physician Dr. Bacon and my senior resident Dr. Rito MONTES PGY-2. Daniele Hoffman DO PGY-1 Time Spent with Patient Time attestation: Total time spent providing and/or coordinating discharge services: More than 50% Time spent: Greater than 30 minutes Exam Vital Signs Temp Pulse Resp BP Pulse Ox O2 Del Method O2 Flow Rate 98.6 F 72 18 144/85 H 93 L Nasal Cannula 0.5 07/18/25 07:50 07/18/25 08:45 07/18/25 07:50 07/18/25 08:45 07/18/25 07:50 07/18/25 07:48 07/18/25 07:50 FiO2 40 07/17/25 11:30 Narrative Exam General: Obese man. Awake and in no acute distress. Conversational and non- toxic appearing. Neurologic: GCS 15. Alert and oriented x3, no gross neurological deficit, and patient able to move all 4 extremities. HEENT: Normocephalic, atraumatic, mucous membranes moist. Pupils reactive to light. Heart: Regular rate and rhythm, normal S1 and S2, no murmurs. Lungs: Clear to auscultation bilaterally with no wheezing or crackles. Abdomen: Obese. No guarding or rebound tenderness. Extremities: Bilateral 3+ lower extremity pitting edema up to the hips. 2+ radial and dorsalis pedis pulses bilaterally. Skin: Warm. Dry. No rash or ecchymoses. Discharge Plan Plan Patient Disposition: HOME (Self Care) Disposition Comment: with Home O2 Patient condition on transfer: Stable Care Plan Goals: -Follow up with PCP within 1 week of discharge, if you do not have a primary care physician you can come see us at the [facility] by calling [phone] -Please follow up with [employer] Dr. Nunez outpatient -Out patient dialysis chair time. Patient's schedule is M/W/F @ 4:30a.m. starting this Tuesday07/19/2025. -Please follow up outpatient with [facility] outpatient -You need to need get sleep study done, so please obtain referral from your primarycare -Please take all your medications as prescribed -Return to the ED or call EMS if symptoms return and/or worsen Prescriptions/Referrals Prescriptions/Med Rec: New calcium acetate(phosphat bind) 667 mg Capsule 1,334 mg PO TIDWM 30 Days Qty: 60 0RF levothyroxine 75 mcg capsule 75 mcg PO ACBR 30 Days Qty: 30 0RF furosemide 80 mg tablet 80 mg PO QDAY Qty: 30 0RF carvedilol 25 mg tablet 25 mg PO BIDWM 30 Days Qty: 60 0RF lisinopril 5 mg tablet 5 mg PO QDAY Qty: 30 0RF Continued hydralazine 50 mg tablet 50 mg PO TID ergocalciferol (vitamin D2) 1,250 mcg (50,000 unit) capsule 1,250 mcg PO .week Patient Comments: take 1 capsule by mouth every week Discontinued furosemide 40 mg tablet 40 mg PO DAILY amlodipine 10 mg tablet 10 mg PO DAILY lisinopril 5 mg tablet 5 mg PO DAILY levothyroxine 50 mcg tablet 50 mcg PO .AM dapagliflozin propanediol [Farxiga] 10 mg tablet 10 mg PO DAILY Patient Comments: TAKE 1 TABLET BY MOUTH EVERY DAY clonidine 0.2 mg/24 hr patch weekly 0.2 mg TOPICAL .week Patient Comments: APPLY 1 PATCH TOPICALLY EVERY WEEK allopurinol 300 mg tablet 300 mg PO .am Patient Comments: take 1 tablet by mouth every morning calcitriol 0.25 mcg capsule 0.25 mcg PO HS Patient Comments: take 1 capsule by mouth nightly terazosin 5 mg capsule 5 mg PO HS Patient Comments: take 1 capsule by mouth nightly hydrochlorothiazide 12.5 mg tablet 12.5 mg PO .am Patient Comments: TAKE 1 TABLET BY MOUTH EVERY DAY IN THE MORNING Referrals: Guerda Mccoy MD [Primary Care Provider] Patient/Caregiver Discharge Instructions Other Discharge Activity Instructions:: Follow up at [facility] out patient schedule: M/W/F @ 4:30a.m. Starting on Tuesday, the 19 of July at 4:30a.m. #[phone] Other Discharge Diet Instructions: hemodialysis Education Materials: Hemodialysis, Caring for Your Central Vein Access, Kidney Disease Fluid Intake, Kidney Disease Avoid High Sodium, Limiting Fluids Dc Print Language: Albanian Stand Alone Forms: [employer] Award Info., Patient Portal Info Letter Discharge Order Discharge Orders: Discharge (Routine); Ordered 07/17/25 Ordered By: Lorenza Veras Quality Discharge Quality Measures none
--- NOTE | 2025-07-18 09:02 | PC.SS ---
Follow up note: Patient d/c held due to 02 not beng delivered. SS contacted [employer]. to follow up and the stated that they are in route this monring and will call me with an ETA. Patient currently in dialysis. Once he receives 02 he can d/c home.
[2025-07-18] MEDS: HEPARIN SOD INJ 1000 UNIT/ML VIAL 10 ML 3500 UNIT INDWELLCAT (10:59)
[2025-07-18] MEDS: CALCIUM ACETATE 667 MG TABLET 1334 MG PO (11:17)
[2025-07-18] MEDS: PANTOPRAZOLE 40 MG TABLET PO (11:18)
== END 2025-07-18 13:00 | disposition home or self-care (01) | DRG 194 ==
LOC: SERX 20:09 → SERHOLD 20:56 → S2NX 07-14 09:21
PROVIDERS: Internal Medicine Nephrology; Nurse Practitioner Family; Student in an Organized Health Care Education/Training Program; Admitting Provider Internal Medicine; Emergency Provider Emergency Medicine; PCP Internal Medicine; Visit Provider Internal Medicine
DX: I13.2 Hypertensive heart and chronic kidney disease with heart failure and with stage 5 chronic kidney disease, or end stage renal disease (principal); N18.6 End stage renal disease; D63.1 Anemia in chronic kidney disease; I50.20 Unspecified systolic (congestive) heart failure; M10.9 Gout, unspecified; E03.9 Hypothyroidism, unspecified; E66.01 Morbid (severe) obesity due to excess calories; Z68.42 Body mass index [BMI] 45.0-49.9, adult; J96.01 Acute respiratory failure with hypoxia; E83.51 Hypocalcemia; I21.A1 Myocardial infarction type 2; F14.10 Cocaine abuse, uncomplicated; N17.9 Acute kidney failure, unspecified; E83.39 Other disorders of phosphorus metabolism; I27.20 Pulmonary hypertension, unspecified; Z79.890 Hormone replacement therapy; Z79.899 Other long term (current) drug therapy; Z87.891 Personal history of nicotine dependence; Z99.2 Dependence on renal dialysis; N25.81 Secondary hyperparathyroidism of renal origin; N40.0 Benign prostatic hyperplasia without lower urinary tract symptoms
CPT/HCPCS: 36415; 71045; 76770; 76937; 77001; 80053; 80061; 80069; 80074; 80307; 81001; 82270; 82570; 82728; 83036; 83540; 83550; 83735; 83880; 84100; 84156; 84443; 84481; 84484; 85025; 85610; 85730; 86580; 93005; 93306; 93970; 94003; 94660; 94762; 96365; 96375; 99283; A4649; C1750; C1894; J0613; J0689; J1642; J1643; J1938; J2470; J3480; J3490; J7050; Q5106; A9270; J1920

== ENCOUNTER → 2025-08-13 | Outpatient (CLI) | payer MEDICAID, SELFPAY ==
--- NOTE | 2025-08-13 15:10 | XR_ITS ---
EXAMINATION: PA lateral chest 2 views TECHNIQUE: Upright PA lateral chest 2 views Date and time: August 13, 2025, 1517 hours, comparison July 14, 2025 12:06 p.m. INDICATIONS: Coughing beginning 4 days ago, post dialysis catheter placement FINDINGS: Mild heart failure Right internal jugular dialysis catheter tip satisfactory position No pneumothorax Prominent osteopenia IMPRESSION: Mild heart failure
== END | disposition home or self-care (01) ==
LOC: CDIM 14:55
DX: I50.9 Heart failure, unspecified (principal)
CPT/HCPCS: 71046